=== PATIENT | female | born 1950 | race Caucasian/White ===

== ENCOUNTER 2022-03-26 06:44 | Inpatient (IN) | payer MEDICARE, SELFPAY ==
[2022-03-26] VITALS (14 sets, daily range): BP systolic 134–178; BP diastolic 63–96; PULSE 85–127; RESP 16–22; TEMP 36.5–37.9; O2SAT 89–97; BMI 38.5; BMI 36.8
--- NOTE | ~2022-03-26 | XR_ITS ---
EXAMINATION: XR CHEST CLINICAL INFORMATION: Shortness of breath, wheezing. COMPARISON: 11/03/2018 chest radiograph. TECHNIQUE: Frontal view of the chest was obtained. FINDINGS: No significant abnormality is noted involving the heart, lungs, mediastinum, bony thorax or soft tissues. XR/XR chest 1V IMPRESSION: No acute cardiopulmonary process.
--- NOTE | ~2022-03-26 | XR_ITS ---
EXAMINATION: XR CHEST CLINICAL INFORMATION: Cough COMPARISON: Previous chest x-ray most recent 03/26/2022 TECHNIQUE: 2 views of the chest were obtained. FINDINGS: The cardiac and mediastinal contours are stable. The lung volumes are low. There is question of lower lobe on the lateral view. This is not identified on the AP view. The lungs are otherwise clear. There is no pleural effusion or pneumothorax. There are degenerative changes of the spine. There is an old left humeral shaft fracture. Air-filled slightly distended loops of bowel. XR/XR chest 2V IMPRESSION: Question lower lobe atelectasis. No evidence of pneumonia. Air-filled slightly distended loops of bowel.
[2022-03-26] MEDS: Albuterol Sulfate 2.5 MG/0.5 ML VIAL.NEB 5 MG INHALE (06:58)
--- NOTE | 2022-03-26 07:01 | ED_ITS ---
HPI - SOB/Dyspnea General Chief Complaint: Dyspnea Stated Complaint: sob Time Seen by Provider: 03/26/22 06:53 Source: patient and family ( Kieran) Mode of arrival: EMS History of Present Illness HPI Narrative: 71-year-old female who presents emergency department for evaluation of shortness of breath. The patient states she has a history of asthma and has been feeling short of breath for approximately 2 days. She states she has been using her inhaler but she believes that it is making her feel worse. She states that at 02:30 hours she woke up and was very short of breath. She states that she used her inhaler without relief. The shortness of breath got worse therefore she called an ambulance. Paramedics noted that the patient was wheezing and she was treated with the DuoNeb nebulizer in route. On presentation to the emergency department the patient appeared tachypneic with a respiratory rate of 22 and was tachycardic with a heart rate of 110. Her lung exam revealed diffuse wheezing and rhonchi with no rales. She was treated with an albuterol nebulizer 5 mg. The patient denied fever, chills, rhinorrhea or sore throat. She states that she has a cough which is nonproductive. She complains of shortness of breath and dyspnea on exertion. She denied nausea, vomiting, diarrhea, myalgias arthralgias. She states she has received 3 COVID-19 vaccinations and did receive her flu shot this year. elicited complaint: shortness of breath Pertinent past history: asthma Onset (ago): day(s) (2) Timing: constant Severity: severe Exacerbating factors: nothing Relieving factors: nothing Known history of: asthma Associated symptoms: cough Treatment prior to arrival: bronchodilator Related Data Allergies Allergy/AdvReac Type Severity Reaction Status Date / Time diltiazem [From CARDIZEM] Allergy Unknown UNKNOWN Unverified 01/22/20 16:49 acetaminophen [From PERCOCET] AdvReac Severe HALLUCINATI Unverified 01/22/20 16:49 ONS oxycodone [From PERCOCET] AdvReac Severe HALLUCINATI Unverified 01/22/20 16:49 ONS aspirin [ASPIRIN] AdvReac Intermediate BLOODY Unverified 01/22/20 16:49 DIARRHEA Review of Systems Review of Systems: Yes all other systems are reviewed and are negative [facility] Past Medical History [facility] Narrative: Past medical history: Hypertension, asthma, TIA in 2019. Past surgical history: , thyroidectomy. Social history: She lives at home with her him and her daughter. She denies tobacco use, alcohol and drug use. Social History Social History Smoked in Last 30 Days: No Use of substances other than those prescribed or required for medical reasons: No Advance Directives: No Advance Directives Information Provided: No Physical Exam Vital Signs: Vital Signs: Last Vital Signs Temp 97.7 F 03/26/22 07:14 Pulse 120 H 03/26/22 10:52 Resp 22 H 03/26/22 10:52 BP 137/69 03/26/22 10:52 Pulse Ox 95 03/26/22 10:52 O2 Del Method 03/26/22 10:52 BMI result Body Mass Index 38.5 Const: Other: Awake, alert, female patient, appears dyspneic, answers questions appropriately HEENT: Head: Yes normal to inspection, Yes normocephalic and Yes atraumatic Ears: external ears normal General nose exam: Normal external nose present Face and sinus: Yes normal facial exam Mouth: Normal oral and palatal mucosa present Throat: Yes posterior oropharynx normal Eyes: General: appearance normal, both eyes and all related structures Pupils: Equal, round and reactive pupils present Neck: Neck: Yes normal visual inspection, Yes no lymphadenopathy, Yes trachea midline and Yes supple Chest: Chest palpation & inspection: normal inspection of the chest and normal palpation of entire chest wall Resp: Effort & Inspection: able to speak in complete sentences and tachypneic Auscultation: rhonchi (Diffuse) and wheezes (Diffuse) Cardio: Rate: regular rate Rhythm: regular rhythm Heart sounds: S1 normal heart sound present, S2 normal heart sound present and no murmurs GI: Inspection: Yes normal to inspection Palpation (GI): Soft to palpation, nontender and no guarding Auscultation: normal bowel sounds : General: Yes no CVA tenderness Back/Spine/Pelvis: Back: no CVA tenderness Skin: General skin exam: no rashes or lesions noted Neuro: Cranial nerves: Yes CN's II-XII intact bilaterally and Yes Equal, round and reactive pupils present Cognition (Neuro): normal cognition Motor exam (neuro): 5/5 motor strength present throughout Extrem: Other: No pitting edema General: Yes normal to inspection Psych: Appearance: grossly normal Speech and movement: Normal speech and movement present Affect: normal affect Attitude: cooperative Thought process: Normal thought process present Thought content: Normal thought content present Course Course Course Narrative: 71-year-old female who presents emergency department for evaluation shortness of breath x2 days which got worse this morning at 02:30 hours. Patient was noted to have significant wheezing by the paramedics and was given a DuoNeb EN route. When I evaluated the patient she was this neck and tachypneic, she had diffuse rhonchi diffuse wheezing. She was treated with an albuterol nebulizer 5 mg. Patient has had a cough for several days otherwise review of systems was unremarkable. Patient does have a history of asthma. I ordered a laboratory evaluation chest x-ray on the patient. Patient was also ordered to get Solu- Medrol 125 mg IV for asthma exacerbation. 1107: Laboratory evaluation revealed an elevated WBC 74464, elevated glucose 226, elevated high sensitive troponin I of 25.3. COVID and influenza were negative. Chest x-ray revealed no acute disease. Twelve EKG was consistent with sinus tachycardia. On re-evaluation the patient is still wheezing but it is significantly improved. She states she still feeling short of breath. Patient was ordered to get an albuterol nebulizer 2.5 mg. I also ordered a BMP and repeat troponin. 1222: Patient's repeat high sensitive troponin I was elevated 240, this is concerning for possible NSTEMI. Patient's proBNP was normal. I did discuss the patient's presentation with the covering tapering machine operator, Dr. Abraham. He recommended treating for acute coronary syndrome and advised starting heparin. The patient states she is allergic to aspirin therefore this was not given to her. Patient does take Plavix. I will repeat her EKG. I will discuss admission with the covering hospitalist. Medications Administered Discontinued Medications Generic Name Dose Route Start Last Admin Trade Name Freq PRN Reason Stop Dose Admin Albuterol Sulfate 5 mg 03/26/22 06:53 03/26/22 06:58 Albuterol Sulfate 2.5 Mg/0.5 Ml Vial.Neb INHALE 03/26/22 06:54 5 mg ONCE ONE Administration Methylprednisolone Sodium Succinate 125 mg 03/26/22 07:01 03/26/22 07:11 Methylprednisolone Sod Succ 125 Mg/2 Ml Vial IVPUSH 03/26/22 07:02 125 mg ONCE ONE Administration MDM - SOB/Dyspnea Medical Records Attestation: I reviewed the patient's medical records. Lab Data Attestation: I reviewed the patient's lab results. Result diagrams: 03/26/22 07:33 03/26/22 07:33 Labs: Lab Results 03/26/22 03/26/22 03/26/22 Range/Units 07:33 07:33 07:33 WBC 12.5 H (4.8-10.8) X10*3/uL RBC 4.90 (4.20-5.50) X10*6/uL Hgb 14.8 (12.0-16.0) g/dl Hct 44.3 (37.0-47.0) % MCV 90.4 (80.0-98.0) fL MCH 30.2 (27.0-33.0) pg MCHC 33.4 (31.0-35.0) g/dl RDW 12.1 (11.0-16.0) % Plt Count 273 (160-400) X10*3/uL MPV 10.3 (9.4-12.3) fL Immature Gran % (Auto) 0.5 H (0.0-0.4) % Neut % (Auto) 70.0 (45-73) % Lymph % (Auto) 21.0 (20-40) % Rooks % (Auto) 4.7 (2-11) % Eos % (Auto) 3.6 (0-4) % Baso % (Auto) 0.2 (0-2) % Lymph # (Auto) 2.6 (1.2-4.9) X10*3/uL Rooks # (Auto) 0.6 (0.1-1.2) X10*3/uL Eos # (Auto) 0.5 H (0.0-0.4) X10*3/uL Baso # (Auto) 0.0 (0.0-0.2) X10*3/uL Abs Immat Gran (auto) 0.06 H (0.00-0.03) X10*3/uL Absolute Neuts (auto) 8.8 H (2.0-8.3) x10*3/uL Absolute Nucleated RBC 0.000 (0.0-0.012) X10*3/uL Nucleated RBC % (auto) 0.0 (0.0-0.2) /100WBC PT 11.4 (10.0-13.1) SEC INR 1.0 (0.9-1.1) APTT 30.1 (26.0-36.4) SEC Sodium 138 (135-145) mmol/L Potassium 4.1 (3.3-5.1) mmol/L Chloride 102 (96-108) mmol/L Carbon Dioxide 24 (22-29) mmol/L Anion Gap 16 (12-20) BUN 15 (9-16) mg/dL Creatinine 1.01 (0.5-1.4) mg/dL Estim Creat Clear Calc 54.5 Estimated GFR 54 Random Glucose 226 H (60-115) mg/dL Calcium 8.9 (8.4-10.2) mg/dL Total Bilirubin 0.5 (0.0-1.0) mg/dL AST 14 (5-31) U/L ALT 13 (0-31) U/L Alkaline Phosphatase 61 (39-117) U/L Troponin I High Sens (<3.5-17.0) ng/L B-Natriuretic Peptide (<100) pg/mL Total Protein 7.2 (6.5-8.0) g/dL Albumin 4.4 (3.5-5.0) g/dL Lipase 13 (8-78) U/L COVID-19 (LINDA) (Negative) COVID-19 Clin Com Influenza Type A (LASHAE) (Negative) Influenza Type B (LASHAE) (Negative) Influenza A & B Note 03/26/22 03/26/22 03/26/22 Range/Units 07:33 07:33 07:33 WBC (4.8-10.8) X10*3/uL RBC (4.20-5.50) X10*6/uL Hgb (12.0-16.0) g/dl Hct (37.0-47.0) % MCV (80.0-98.0) fL MCH (27.0-33.0) pg MCHC (31.0-35.0) g/dl RDW (11.0-16.0) % Plt Count (160-400) X10*3/uL MPV (9.4-12.3) fL Immature Gran % (Auto) (0.0-0.4) % Neut % (Auto) (45-73) % Lymph % (Auto) (20-40) % Rooks % (Auto) (2-11) % Eos % (Auto) (0-4) % Baso % (Auto) (0-2) % Lymph # (Auto) (1.2-4.9) X10*3/uL Rooks # (Auto) (0.1-1.2) X10*3/uL Eos # (Auto) (0.0-0.4) X10*3/uL Baso # (Auto) (0.0-0.2) X10*3/uL Abs Immat Gran (auto) (0.00-0.03) X10*3/uL Absolute Neuts (auto) (2.0-8.3) x10*3/uL Absolute Nucleated RBC (0.0-0.012) X10*3/uL Nucleated RBC % (auto) (0.0-0.2) /100WBC PT (10.0-13.1) SEC INR (0.9-1.1) APTT (26.0-36.4) SEC Sodium (135-145) mmol/L Potassium (3.3-5.1) mmol/L Chloride (96-108) mmol/L Carbon Dioxide (22-29) mmol/L Anion Gap (12-20) BUN (9-16) mg/dL Creatinine (0.5-1.4) mg/dL Estim Creat Clear Calc Estimated GFR Random Glucose (60-115) mg/dL Calcium (8.4-10.2) mg/dL Total Bilirubin (0.0-1.0) mg/dL AST (5-31) U/L ALT (0-31) U/L Alkaline Phosphatase (39-117) U/L Troponin I High Sens 25.3 H (<3.5-17.0) ng/L B-Natriuretic Peptide (<100) pg/mL Total Protein (6.5-8.0) g/dL Albumin (3.5-5.0) g/dL Lipase (8-78) U/L COVID-19 (LINDA) Negative (Negative) COVID-19 Clin Com See Note Influenza Type A (LASHAE) Negative (Negative) Influenza Type B (LASHAE) Negative (Negative) Influenza A & B Note See Note 03/26/22 03/26/22 Range/Units 10:55 10:55 WBC (4.8-10.8) X10*3/uL RBC (4.20-5.50) X10*6/uL Hgb (12.0-16.0) g/dl Hct (37.0-47.0) % MCV (80.0-98.0) fL MCH (27.0-33.0) pg MCHC (31.0-35.0) g/dl RDW (11.0-16.0) % Plt Count (160-400) X10*3/uL MPV (9.4-12.3) fL Immature Gran % (Auto) (0.0-0.4) % Neut % (Auto) (45-73) % Lymph % (Auto) (20-40) % Rooks % (Auto) (2-11) % Eos % (Auto) (0-4) % Baso % (Auto) (0-2) % Lymph # (Auto) (1.2-4.9) X10*3/uL Rooks # (Auto) (0.1-1.2) X10*3/uL Eos # (Auto) (0.0-0.4) X10*3/uL Baso # (Auto) (0.0-0.2) X10*3/uL Abs Immat Gran (auto) (0.00-0.03) X10*3/uL Absolute Neuts (auto) (2.0-8.3) x10*3/uL Absolute Nucleated RBC (0.0-0.012) X10*3/uL Nucleated RBC % (auto) (0.0-0.2) /100WBC PT (10.0-13.1) SEC INR (0.9-1.1) APTT (26.0-36.4) SEC Sodium (135-145) mmol/L Potassium (3.3-5.1) mmol/L Chloride (96-108) mmol/L Carbon Dioxide (22-29) mmol/L Anion Gap (12-20) BUN (9-16) mg/dL Creatinine (0.5-1.4) mg/dL Estim Creat Clear Calc Estimated GFR Random Glucose (60-115) mg/dL Calcium (8.4-10.2) mg/dL Total Bilirubin (0.0-1.0) mg/dL AST (5-31) U/L ALT (0-31) U/L Alkaline Phosphatase (39-117) U/L Troponin I High Sens 240.0 H* D (<3.5-17.0) ng/L B-Natriuretic Peptide 31 (<100) pg/mL Total Protein (6.5-8.0) g/dL Albumin (3.5-5.0) g/dL Lipase (8-78) U/L COVID-19 (LINDA) (Negative) COVID-19 Clin Com Influenza Type A (LASHAE) (Negative) Influenza Type B (LASHAE) (Negative) Influenza A & B Note ECG Data Attestation: I personally reviewed and interpreted this ECG as follows: Interpretation: 0702: Sinus tachycardia rate of 112, normal intervals, no ST segment elevation or depression, no PACs, no PVCs, no Q-waves, there is no old EKG for comparison. Critical Care Time Critical Care Time Critical Care Time: Yes Total Critical Care Time: 35 Attestation: Critical Care: The patient was critically ill with a high probability of imminent or life threatening deterioration. I spent greater than 30 minutes of discontinuous time evaluating the patient,delivering critical care at the bedside, discussing and evaluating pertinent data with consultants. Critical care time does not include time spent performing separately billable procedures or teaching. Total time spent performing critical care was 35 minutes. Discharge Plan Discharge Patient Disposition: Admitted As Inpatient
--- NOTE | 2022-03-26 07:02 | ECG_ITS ---
Test Reason : SOB Blood Pressure : / mmHG Vent. Rate : 112 BPM Atrial Rate : 112 BPM P-R Int : 146 ms QRS Dur : 056 ms QT Int : 286 ms P-R-T Axes : 063 041 041 degrees QTc Int : 390 ms Sinus tachycardia Nonspecific ST and T wave abnormality Abnormal ECG When compared with ECG of 03-NOV-2018 03:49, Nonspecific T wave abnormality has replaced inverted T waves in Anterior leads Referred By: Horace Hamlin Electronically Signed By:BRICE SPRINGER MD
[2022-03-26] MEDS: methylPREDNISolone Sod Succ 125 MG/2 ML VIAL IVPUSH (07:11)
--- NOTE | 2022-03-26 07:19 | PC.NURSE ---
pt complains of worsening sob starting this morning accompanied by a cough. she has not been feeling well for the past 2 weeks. hx of asthma, uses inhaler at home, not oxygen dependant. O2 sat 96% at ra after albuterol treatment and solu medrol IV. she states she is feeling much better.
[2022-03-26 07:38] LABS: MANUAL DIFF FLAG NO
[2022-03-26 07:39] LABS: Basophils Percent Auto 0.2 % (0-2); Eosinophils Absolute Auto 0.5 X10*3/uL (0.0-0.4); Eosinophils Percent Auto 3.6 % (0-4); Hematocrit 44.3 % (37.0-47.0); Hemoglobin 14.8 g/dl (12.0-16.0); Imm Gran Abs Auto 0.06 X10*3/uL (0.00-0.03); Imm Gran Pct Auto 0.5 % (0.0-0.4); Lymphocytes Absolute Auto 2.6 X10*3/uL (1.2-4.9); Mean Corpuscular HGB Conc 33.4 g/dl (31.0-35.0); Mean Corpuscular Hemoglobin 30.2 pg (27.0-33.0); Mean Corpuscular Volume 90.4 fL (80.0-98.0); Mean Platelet Volume 10.3 fL (9.4-12.3); Monocytes Absolute Auto 0.6 X10*3/uL (0.1-1.2); Monocytes Percent Auto 4.7 % (2-11); Neutrophils Absolute Auto 8.8 x10*3/uL (2.0-8.3); Platelet Count 273 X10*3/uL (160-400); Red Cell Distribution Width 12.1 % (11.0-16.0); White Blood Count 12.5 X10*3/uL (4.8-10.8)
[2022-03-26 07:54] LABS: Alanine Aminotransferase 13 U/L (0-31); Albumin Level 4.4 g/dL (3.5-5.0); Alkaline Phosphatase 61 U/L (39-117); Anion Gap 16 (12-20); Aspartate Amino Transferase 14 U/L (5-31); Bilirubin Total 0.5 mg/dL (0.0-1.0); Blood Urea Nitrogen 15 mg/dL (9-16); Calcium 8.9 mg/dL (8.4-10.2); Carbon Dioxide 24 mmol/L (22-29); Chloride 102 mmol/L (96-108); Creatinine Clr Calc Pharmacy 54.5; Estimated Glomerular Filt Rate 54; Glucose Random 226 mg/dL (60-115); Lipase 13 U/L (8-78); Potassium 4.1 mmol/L (3.3-5.1); Sodium 138 mmol/L (135-145); Total Protein 7.2 g/dL (6.5-8.0)
[2022-03-26 07:56] LABS: Prothrombin Time 11.4 SEC (10.0-13.1)
[2022-03-26 07:58] LABS: Partial Thromboplastin Time 30.1 SEC (26.0-36.4)
[2022-03-26 08:01] LABS: Troponin-I High Sensitivity 25.3 ng/L (<3.5-17.0)
[2022-03-26 08:05] LABS: COVID-19 Test Negative (Negative); IDNOW Serial# 08D9AD1C; Influenza A Negative (Negative); Influenza B2 Negative (Negative)
--- NOTE | 2022-03-26 08:53 | PC.NURSE ---
pt alert and oriented x3. confused about time. resting comfortably. bp in the 160s. sinus tachy in the 120s. 02 sat 97% at ra.
--- NOTE | 2022-03-26 09:00 | PC.NURSE ---
pt ambulated to the bathroom. vs unchanged.
--- NOTE | 2022-03-26 10:53 | PC.NURSE ---
pt resting comfortably. alert and oriented x 3. tech drawing bnp and repeat troponin per providers orders. spouse at bedside.
[2022-03-26 11:22] LABS: B Type Natriuretic Peptide 31 pg/mL (<100)
--- NOTE | 2022-03-26 12:21 | ECG_ITS ---
Test Reason : HYPOXIA Blood Pressure : / mmHG Vent. Rate : 057 BPM Atrial Rate : 057 BPM P-R Int : 128 ms QRS Dur : 080 ms QT Int : 430 ms P-R-T Axes : 062 077 070 degrees QTc Int : 418 ms Sinus bradycardia with marked sinus arrhythmia Otherwise normal ECG When compared with ECG of 26-MAR-2022 07:02, Vent. rate has decreased BY 55 BPM QRS duration has increased Nonspecific T wave abnormality no longer evident in Lateral leads Referred By: Horace Hamlin Electronically Signed By:BRICE SPRINGER MD
[2022-03-26] MEDS: Albuterol Sulfate (0.083%) 2.5 MG/3 ML VIAL.NEB INHALE (12:28)
[2022-03-26] MEDS: Heparin Sodium,Porcine 5,000 UNIT/ML VIAL 4000 UNIT IVPUSH (13:15)
[2022-03-26] MEDS: Heparin Sodium,Porcine/1/2NS 25,000 UNIT/250 ML IV.SOLN 10 UNIT IVCONT (13:16)
--- NOTE | 2022-03-26 13:24 | PC.NURSE ---
pt alert and oriented. seems a little confused when asked questions, at the bedside, he confirmed this is her baseline. she denies chest pain. BP is elevated and hr is in the 120s. gave her 4000U heparin bolus and started heparin drip
--- NOTE | 2022-03-26 14:38 | P.HPHOSP_ITS ---
History of Present Illness Date of Service: 03/26/22 Attending physician on admission: Ijeoma Dudley Chief Complaint: shortness of br 71-year-old female patient with past medical history significant for hypertension, asthma, TIA in 2019 presented to [facility] due to shortness of breath of 2 days duration associated with dry cough for few days duration patient took her home inhalers with no significant improvement last night patient woke up with worsening shortness of breath therefore called ambulance, paramedics noted bilateral wheeze she required treatment with DuoNeb nebulizer EN route in the ED patient was noted to be tachypneic tachycardic lung exam revealed diffuse wheezing and rhonchi patient treated with albuterol nebulizer, IV steroids , influenza and COVID test was negative chest x-ray showed no acute infiltrate, BNP was 31, initial troponin was 25 that jump to 240, EKG showed no acute ischemic changes patient denies chest pain, no palpitation patient denies associated nausea vomiting abdominal pain no diaphoresis, no lightheadedness, no dizziness, denies fever chills patient is now being admitted to [facility] with asthma exacerbation likely causing secondary KS on arrival patient oxygenation was 89% on room air. Review of Systems Review of Systems: General no headache no dizziness no fever chills. CVS no chest pain, no palpitation. Respiratory dry cough and shortness of breath of few days duration Gastrointestinal no nausea no vomiting, no abdominal pain no urinary urgency, no frequency Skin no rash musculoskeletal no pain Yes all other systems are reviewed and are negative [facility] Medical History (Updated 03/27/22 @ 10:25 by Justino Brar MD) Asthma Hypertension TIA (transient ischemic attack) Family History (Updated 03/27/22 @ 10:25 by Justino Brar MD) Maternal Uncle Myocardial infarction Pertinent family history: history of premature coronary artery disease in maternal uncle at age 45 had massive heart attack, mother and father with no acute medical issues Social History Household Members: Spouse and Children Housing: House Do you presently have visiting nurse or other home services: No Patient Tobacco Use Status: Never used Tobacco Smoked in Last 30 Days: No Use of substances other than those prescribed or required for medical reasons: No Currently Displaying Signs/Symptoms of Drug Intoxication Withdrawal: No Have you been hit, kicked, punched, or otherwise hurt by someone within the past year? If so, by whom?: No Do you feel safe in your current relationship?: Yes Is there a partner from a previous relationship who is making you feel unsafe now?: No Are you made to feel afraid or neglected: No Advance Directives: No Advance Directives Information Provided: No Do you have thoughts of harming others: None Do you have a plan to hurt others: No Plan Recently lost weight without trying: No Nutrition Risks: No Nutritional Risk Patient : No service: No Meds Allergies Allergy/AdvReac Type Severity Reaction Status Date / Time diltiazem [From CARDIZEM] Allergy Unknown UNKNOWN Unverified 01/22/20 16:49 acetaminophen [From PERCOCET] AdvReac Severe HALLUCINATI Unverified 01/22/20 16:49 ONS oxycodone [From PERCOCET] AdvReac Severe HALLUCINATI Unverified 01/22/20 16:49 ONS aspirin [ASPIRIN] AdvReac Intermediate BLOODY Unverified 01/22/20 16:49 DIARRHEA Active Medications: Current Medications Acetaminophen (Acetaminophen 325 Mg Tablet) 650 mg PO Q6H PRN PRN Reason: Pain, Mild (Pain Scale 1-3) Heparin Sodium (Porcine) (Heparin Sodium,Porcine 5,000 Unit/Ml Vial) 3,500 unit 40 unit/kg (3500 unit) IVPUSH PROTOCOL BOLUS PRN; Protocol PRN Reason: 40 unit/kg - Heparin Protocol Heparin Sodium (Porcine) (Heparin Sodium,Porcine 5,000 Unit/Ml Vial) 7,100 unit 80 unit/kg (7100 unit) IVPUSH PROTOCOL BOLUS PRN; Protocol PRN Reason: 80 unit/kg - Heparin Protocol Heparin Sodium/Sodium Chloride (Heparin Sodium,Porcine/1/2ns) 25,000 unit in 250 mls @ 0 mls/hr IVCONT .Q0M ZAID; Protocol Last Admin: 03/26/22 13:16 Dose: 11.33 units/kg/hr, 10 mls/hr Levalbuterol HCl (Levalbuterol Hcl 1.25 Mg/0.5 Ml Vial.Neb) 1.25 mg INHALE RQ4H WHILE AWAKE ZAID Melatonin (Melatonin 3 Mg Tablet) 3 mg PO BEDTIME PRN PRN Reason: Insomnia Methylprednisolone Sodium Succinate (Methylprednisolone Sod Succ 125 Mg/2 Ml Vial) 40 mg IVPUSH Q8H [facility] Ondansetron HCl (Ondansetron Hcl 4 Mg/2 Ml Vial) 4 mg IVPUSH Q8H PRN PRN Reason: Nausea and Vomiting Pharmacy Consult (Consult Rx Perform Med Rec) 1 each MISCELLANE ONCE PRN PRN Reason: Consult order Sodium Chloride (0.9 % Sodium Chloride Flush 3 Ml Syringe) 3 ml IVFLUSH QSHIFT [facility] Home Medications Medication Instructions Recorded Confirmed Last Taken Type Saccharomyces boulardii 250 mg 1 cap PO BID 03/26/22 03/26/22 03/25/22 History capsule (Probiotic (S.boulardii)) albuterol sulfate 90 mcg/actuation 2 puff inhalation Q4H PRN wheezing 03/26/22 03/26/22 Unknown History aerosol inhaler alendronate 70 mg tablet 1 tab PO LOPEZ@0900 03/26/22 03/26/22 03/26/22 History aripiprazole 15 mg tablet 1 tab PO DAILY 03/26/22 03/26/22 03/25/22 History benztropine 1 mg tablet 0.5 tab PO BEDTIME 03/26/22 03/26/22 03/25/22 History cholecalciferol (vitamin D3) 25 1 cap PO DAILY 03/26/22 03/26/22 03/25/22 History mcg (1,000 unit) capsule (Vitamin D3) clopidogrel 75 mg tablet 1 tab PO DAILY 03/26/22 03/26/22 03/25/22 History escitalopram oxalate 20 mg tablet 1 tab PO DAILY 03/26/22 03/26/22 03/25/22 History furosemide 20 mg tablet 1 tab PO DAILY 03/26/22 03/26/22 03/25/22 History ibuprofen 125 mg-acetaminophen 250 2 tab PO BID pain 03/26/22 03/26/22 03/25/22 History mg tablet (Advil Dual Action) latanoprost 0.005 % eye drops 1 drp ophthalmic (eye) BEDTIME 03/26/22 03/26/22 03/25/22 History rosuvastatin 5 mg tablet 1 tab PO DAILY 03/26/22 03/26/22 03/25/22 History spironolactone 50 mg tablet 1 tab PO DAILY 03/26/22 03/26/22 03/25/22 History trazodone 50 mg tablet 1 tab PO BEDTIME PRN insomnia 03/26/22 03/26/22 03/25/22 History Physical Exam Vital Signs and Narrative: Vital Signs: Last Vital Signs Temp 97.7 F 03/26/22 07:14 Pulse 124 H 03/26/22 13:13 Resp 20 03/26/22 13:13 BP 160/73 H 03/26/22 13:13 Pulse Ox 95 03/26/22 13:13 O2 Del Method 03/26/22 13:13 BMI result Body Mass Index 36.8 Const: Other: General patient awake alert, in no acute distress. anicteric sclera Neck supple no JVD. CVS regular rate rhythm, no murmurs Respiratory lungs diminished breath sound, bilateral expiratory wheeze, no crackles, no use of accessory muscles Gastrointestinal abdomen soft, non tender, bowel sounds audible, no no guarding , no rigidity. Extremities no clubbing cyanosis or edema. Neuro nonfocal Skin no rash psych appropriate affect Results Labs CBC and Chem 7: 03/27/22 08:30 03/26/22 07:33 Labs: Laboratory Results - last 24 hr 03/26/22 03/26/22 03/26/22 07:33 07:33 07:33 MCV 90.4 MCH 30.2 MCHC 33.4 RDW 12.1 Plt Count 273 MPV 10.3 Immature Gran % (Auto) 0.5 H Neut % (Auto) 70.0 Lymph % (Auto) 21.0 [place] % (Auto) 4.7 Eos % (Auto) 3.6 Baso % (Auto) 0.2 Lymph # (Auto) 2.6 [place] # (Auto) 0.6 Eos # (Auto) 0.5 H Baso # (Auto) 0.0 Abs Immat Gran (auto) 0.06 H Absolute Neuts (auto) 8.8 H Absolute Nucleated RBC 0.000 Nucleated RBC % (auto) 0.0 PT 11.4 INR 1.0 APTT 30.1 Anion Gap 16 Estim Creat Clear Calc 54.5 Estimated GFR 54 Random Glucose 226 H Calcium 8.9 Total Bilirubin 0.5 AST 14 ALT 13 Alkaline Phosphatase 61 Troponin I High Sens B-Natriuretic Peptide Total Protein 7.2 Albumin 4.4 Lipase 13 COVID-19 (LINDA) COVID-19 Clin Com Influenza Type A (LASHAE) Influenza Type B (LASHAE) Influenza A & B Note 03/26/22 03/26/22 03/26/22 07:33 07:33 07:33 MCV MCH MCHC RDW Plt Count MPV Immature Gran % (Auto) Neut % (Auto) Lymph % (Auto) [place] % (Auto) Eos % (Auto) Baso % (Auto) Lymph # (Auto) [place] # (Auto) Eos # (Auto) Baso # (Auto) Abs Immat Gran (auto) Absolute Neuts (auto) Absolute Nucleated RBC Nucleated RBC % (auto) PT INR APTT Anion Gap Estim Creat Clear Calc Estimated GFR Random Glucose Calcium Total Bilirubin AST ALT Alkaline Phosphatase Troponin I High Sens 25.3 H B-Natriuretic Peptide Total Protein Albumin Lipase COVID-19 (LINDA) Negative COVID-19 Clin Com See Note Influenza Type A (LASHAE) Negative Influenza Type B (LASHAE) Negative Influenza A & B Note See Note 03/26/22 03/26/22 10:55 10:55 MCV MCH MCHC RDW Plt Count MPV Immature Gran % (Auto) Neut % (Auto) Lymph % (Auto) [place] % (Auto) Eos % (Auto) Baso % (Auto) Lymph # (Auto) [place] # (Auto) Eos # (Auto) Baso # (Auto) Abs Immat Gran (auto) Absolute Neuts (auto) Absolute Nucleated RBC Nucleated RBC % (auto) PT INR APTT Anion Gap Estim Creat Clear Calc Estimated GFR Random Glucose Calcium Total Bilirubin AST ALT Alkaline Phosphatase Troponin I High Sens 240.0 H* D B-Natriuretic Peptide 31 Total Protein Albumin Lipase COVID-19 (LINDA) COVID-19 Clin Com Influenza Type A (LASHAE) Influenza Type B (LASHAE) Influenza A & B Note Imaging Radiologist's Impressions: Impressions Chest X-Ray 03/26/22 07:27 IMPRESSION: No acute cardiopulmonary process. Assessment and Plan (1) Asthma with exacerbation: Status: Acute (2) Acute non-ST elevation myocardial infarction (NSTEMI): Status: Acute Plan 71-year-old female patient with past medical history significant for asthma, hypertension, history of bloody diarrhea with aspirin, unknown allergy to Cardizem presented to [facility] with 2-3 days history of dry cough associated with shortness of breath not responding to home inhalers, in the ER patient workup showed a normal chest x-ray, elevated troponin normal BNP, normal electrolyte and CBC, EKG showed no acute ischemia on examination patient noted to have bilateral expiratory wheeze suggestive of acute asthma exacerbation likely contributing to non ST-elevation KS. non ST-elevation KS will admit to telemetry unit, placed on IV heparin, statins, Plavix since allergy to aspirin and place on verapamil for tachycardia will check lipid profile, echocardiogram, cardiology consult acute asthma exacerbation with underlying history of mild intermittent asthma will treat with IV Solu Medrol, Xopenex q.4 hours while awake, cough medication, azithromycin to decrease inflammation, continue close clinical follow hypertension med reconciliation pending mood disorder will resume home medication Lexapro, benztropine, and Abilify Code status full code in my clinical judgment patient need 2 night inpatient stay due to non ST- elevation KS and acute asthma exacerbation, on IV heparin and iv steroids Quality Stroke Does the patient have a stroke diagnosis?: No VTE Prior VTE?: No VTE Risk Level:: Medical - moderate - high VTE Device Contraindication: Treatment Not Indicated VTE Drug Contraindication: N/A - Med Ordered
--- NOTE | 2022-03-26 14:59 | PHA.MEDREC ---
Pharmacy Consult ? Medication Reconciliation Pharmacy has completed the medication reconciliation. Family members and patient confirmed meds.
[2022-03-26] MEDS: guaiFENesin DM 100/10/5 ML 5 ML SYRUP 10 ML PO ×2 (16:35→21:54)
[2022-03-26] MEDS: Clopidogrel Bisulfate 75 MG TABLET PO (16:35)
[2022-03-26] MEDS: methylPREDNISolone Sod Succ 125 MG/2 ML VIAL 40 MG IVPUSH ×2 (16:35→22:53)
[2022-03-26] MEDS: VerapamiL HCL 40 MG TABLET PO ×2 (16:35→21:55)
[2022-03-26] MEDS: Atorvastatin Calcium 80 MG TABLET PO (16:38)
[2022-03-26] MEDS: Azithromycin 500 MG in 0.9 % Sodium Chloride 250 ML 125 MG IV (17:28)
[2022-03-26] MEDS: 0.9 % Sodium Chloride Flush 3 ML SYRINGE IVFLUSH ×2 (17:29→23:01)
--- NOTE | 2022-03-26 18:50 | PC.NURSE ---
PATIENT AND UPDATED BEDSIDE ON HEALTH STATUS AND POTENTIAL TRANSFER TO [facility]. PATIENT BLOOD PRESSURE ELEVATED BASELINE AND MD NOTIFIED. HEPARIN DRIP RUNNING THROUGH RT WRIST IV, NO COMPLAINTS. IV ANTIBIOTICS RUNNING THROUGH LEFT WRIST IV, NO COMPLAINTS.
[2022-03-26 19:47] LABS: PTT Heparin Drip 76.6 SEC (53-77.9)
[2022-03-26] MEDS: Benztropine Mesylate 0.5 MG TABLET PO (21:55)
[2022-03-26] MEDS: traZODone HCL 50 MG TABLET PO (21:55)
[2022-03-26] MEDS: Latanoprost 0.005 % Ophth Sol 2.5 ML DROPS 1 DROP EYE-BOTH (22:53)
[2022-03-26] MEDS: Acetaminophen 325 MG TABLET 650 MG PO (23:50)
[2022-03-27] VITALS (8 sets, daily range): BP systolic 129–166; BP diastolic 64–81; PULSE 100–108; RESP 16–20; TEMP 36.6–37.2; O2SAT 92–98
[2022-03-27 02:40] LABS: PTT Heparin Drip 62.1 SEC (53-77.9)
[2022-03-27] MEDS: methylPREDNISolone Sod Succ 125 MG/2 ML VIAL 40 MG IVPUSH ×3 (06:00→22:19)
--- NOTE | 2022-03-27 07:00 | CA_ITS ---
Transthoracic Echocardiogram Patient (Last, First, Middle): Debra Black, Gender: Female Date of : 1950 Age: 71 Procedure Date: 03/27/2022 Procedure Type: Transthoracic Echocardiogram Location: [facility] [place] Height: 154.94 cm Weight: 88. kg BSA: 1.86 m2 Heart Rate: 114 bpm BP: 129 / 81 mmHg Engraving Plate Maker: SB Referring MD: Ijeoma Dudley MD Symptoms: nstemi Study Quality: Adequate w contrast ECG Rhythm: Sinus tachycardia Conclusions: - The left ventricular systolic function is hyperdynamic. The visually estimated ejection fraction is >70%. - There is mild calcification of the aortic valve. - There is mild mitral annular calcification. Findings Procedure Information Contrast agent, definity, is being given per protocol without apparent complications. Left Ventricle Normal left ventricular cavity size. There is normal left ventricular wall thickness. The left ventricular systolic function is hyperdynamic. The visually estimated ejection fraction is >70%. There is no evidence of regional wall motion abnormalities. Diastolic function is normal for age. Right Ventricle Normal right ventricular cavity size and systolic function. Atria Both atria are normal in size. Aortic Valve There is mild calcification of the aortic valve. There is no aortic valve stenosis. There is no aortic valve regurgitation. Mitral Valve There is mild mitral annular calcification. There is no mitral valve regurgitation. There is no mitral valve stenosis. Pulmonic Valve The pulmonic valve is likely normal. Tricuspid Valve There is trace tricuspid valve regurgitation. Tricuspid regurgitation envelope is inadequate for calculation of right ventricular systolic pressure. Great Vessels The asc aorta is normal in size. Small plaque is seen in the sino tubular ridge. Venous The inferior vena cava is normal in size and collapses greater than 50% with inspiration. Pericardium/Pleural There is no evidence of pericardial effusion. Prior Study Comparison No prior study available for comparison. Measurements 2D Linear Measurements IVSd: 0.82 0.6-0.9/0.6-1.0 cm LVIDd: 4.48 3.9-5.3/4.2-5.9 cm LVIDd Index: 2.41 2.4-3.2/2.2-3.1 cm/m2 LVIDs: 3.08 2.0-3.6 cm LVPWd: 0.79 0.7-1.1 cm LA Diam: 3.60 2.7-3.8/3.0-4.0 cm LAIDs Index: 1.94 1.5-2.3 cm/m2 LV Mass: 141.27 67-162/88-224 g LV Mass Index: 75.95 43-95/49-115 g/m2 LVOT Diam: 2.00 3.0+(-)1.3 cm 2D Systolic Function EF 4C: 73.40 >55% EF 2C: 78.20 >55% EF BiP: 75.50 >55% Mitral Valve MV Pk E: 1.07 MV PK A: 1.45 MV Decel Time: 117.00 E/A: 0.70 E'Lateral: 6.64 E'Medial: 7.72 E/E' Med: 13.90 E/E' Lat: 16.10 PHT: 34.00 MVA PHT: 6.47 Decel [place]: 9.09 Aortic Valve AoV Pk Dheeraj: 1.66 AoV Pk Grad: 11.00 LVOT LVOT Pk Dheeraj: 1.32 LVOT Mn Dheeraj: 0.91 LVOT VTI: 0.24 LVOT Pk Grad: 7.00 LVOT Mn Grad: 4.00 LVOT Diam: 2.00 LVOT Area: 3.14 Diastolic Function MV Pk E: 1.07 MV Pk A: 1.45 E/A: 0.70 E'Medial: 7.72 E/E' Med: 13.90 E' Laterial: 6.64 E/E' Lat: 16.10 Right Ventricle TAPSE (mm): 17.50 TVS' Dheeraj: 15.60 Tricuspid Valve RA Press: 3.00 Great Vessels Aorta Sinus of Valsalva: 2.80 2.0-3.5 cm Ao Asc: 3.40 2.1-3.4 cm Pulmonary Valve PV Pk Dheeraj: 1.46 Peak PV Grad: 9.00 Updated in Other Vendor System with Status of Final Justino Brar MD electronically signed on 03/27/2022 12:05:09 PM with status of Final
[2022-03-27] MEDS: guaiFENesin DM 100/10/5 ML 5 ML SYRUP 10 ML PO ×3 (08:34→22:19)
[2022-03-27] MEDS: Furosemide 20 MG TABLET PO (08:34)
[2022-03-27] MEDS: Atorvastatin Calcium 80 MG TABLET PO (08:34)
[2022-03-27] MEDS: ARIPiprazole 15 MG TABLET PO (08:34)
[2022-03-27] MEDS: Spironolactone 25 MG TABLET 50 MG PO (08:34)
[2022-03-27] MEDS: Clopidogrel Bisulfate 75 MG TABLET PO (08:35)
[2022-03-27] MEDS: Escitalopram Oxalate 20 MG TABLET PO (08:35)
[2022-03-27] MEDS: VerapamiL HCL 40 MG TABLET PO ×3 (08:35→22:19)
[2022-03-27 08:40] LABS: Hematocrit 46.3 % (37.0-47.0); Hemoglobin 15.6 g/dl (12.0-16.0); Mean Corpuscular HGB Conc 33.7 g/dl (31.0-35.0); Mean Corpuscular Hemoglobin 30.4 pg (27.0-33.0); Mean Corpuscular Volume 90.3 fL (80.0-98.0); Platelet Count 332 X10*3/uL (160-400); Red Blood Count 5.13 X10*6/uL (4.20-5.50); Red Cell Distribution Width 12.6 % (11.0-16.0); White Blood Count 21.6 X10*3/uL (4.8-10.8)
[2022-03-27 08:49] LABS: Prothrombin Time 11.2 SEC (10.0-13.1)
[2022-03-27 08:52] LABS: PTT Heparin Drip 51.2 SEC (53-77.9)
[2022-03-27 09:16] LABS: Cholesterol 174 mg/dL; HDL Cholesterol 62 mg/dL; LDL Cholesterol Calculated 93 mg/dl; Triglycerides 96 mg/dL
[2022-03-27 09:32] LABS: Troponin-I High Sensitivity 743.3 ng/L (<3.5-17.0)
--- NOTE | 2022-03-27 10:12 | MHC.CM.PN ---
pt from home where she livers with her and sarah pt will not need servceis when dcd has own ride home is covid vax x 3 home no servcies
--- NOTE | 2022-03-27 10:23 | PM.CNCAR ---
History of Present Illness History of Present Illness Date of Service: 03/27/22 Chief complaint: sob Narrative: This is a cardiology consultation regarding elevated troponins. Patient has a history of asthma. No known coronary artery disease or myocardial infarction any other cardiac issues. Otherwise, listed to have hypertension, asthma, TIA. Current admissions because of shortness of breath and coughing. She is being treated for asthma exacerbation. In this context, elevated troponins and hence we have been asked to see her. Apart from the respiratory symptoms she denies any clear anginal-type symptoms at this time. She also has not had any cardiac symptoms like angina in the past Review of Systems Review of Systems: Yes all other systems are reviewed and are negative Constitutional: Constitutional: Reports as per HPI Eyes: Eyes: Reports as per HPI ENT: Reports as per HPI Cardiovascular: Cardiovascular: Reports as per HPI, Denies acrocyanosis, Denies cool extremities, Denies chest pain, Denies leg edema, Denies lightheadedness, Denies palpitations and Reports dyspnea Respiratory: Respiratory: Reports as per HPI, Reports cough and Reports dyspnea Gastrointestinal: Gastrointestinal: Reports as per HPI and Reports no additional gastrointestinal complaints Genitourinary: Genitourinary: Reports as per HPI Musculoskeletal: Musculoskeletal: Reports no additional musculoskeletal complaints and Reports as per HPI Integumentary/Breasts: Skin/Breast: Reports system reviewed and no additional complaints, except as docu Neurologic: Reports system reviewed and no additional complaints, except as documented and Reports as per HPI Psychiatric: Psychiatric: Reports no additional psychiatric complaints and Reports as per HPI Endocrine: Endocrine: Reports no additional endocrine complaints, Reports as per HPI and Denies palpitations Hematologic/Lymphatic: Hematologic/Lymphatic: Reports no additional hematologic/lymphatic complaints and Reports as per HPI Allergic/Immunologic: Allergic/Immunologic: Reports no additional allergic/immunologic complaints and Reports as per HPI PMF Past Medical History Medical History (Updated 03/27/22 @ 10:25 by Justino Brar MD) Asthma Hypertension TIA (transient ischemic attack) Family History Family History (Updated 03/27/22 @ 10:25 by Justino Brar MD) Maternal Uncle Myocardial infarction Social History Social History Household Members: Spouse and Children Housing: House Do you presently have visiting nurse or other home services: No Patient Tobacco Use Status: Never used Tobacco Smoked in Last 30 Days: No Use of substances other than those prescribed or required for medical reasons: No Currently Displaying Signs/Symptoms of Drug Intoxication Withdrawal: No Have you been hit, kicked, punched, or otherwise hurt by someone within the past year? If so, by whom?: No Do you feel safe in your current relationship?: Yes Is there a partner from a previous relationship who is making you feel unsafe now?: No Are you made to feel afraid or neglected: No Advance Directives: No Advance Directives Information Provided: No Do you have thoughts of harming others: None Do you have a plan to hurt others: No Plan Recently lost weight without trying: No Nutrition Risks: No Nutritional Risk Patient : No service: No Meds Allergies Allergy/AdvReac Type Severity Reaction Status Date / Time diltiazem [From CARDIZEM] Allergy Unknown UNKNOWN Unverified 01/22/20 16:49 acetaminophen [From PERCOCET] AdvReac Severe HALLUCINATI Unverified 01/22/20 16:49 ONS oxycodone [From PERCOCET] AdvReac Severe HALLUCINATI Unverified 01/22/20 16:49 ONS aspirin [ASPIRIN] AdvReac Intermediate BLOODY Unverified 01/22/20 16:49 DIARRHEA Active Medications: Current Medications Acetaminophen (Acetaminophen 325 Mg Tablet) 650 mg PO Q6H PRN PRN Reason: Pain, Mild (Pain Scale 1-3) Last Admin: 03/26/22 23:50 Dose: 650 mg Albuterol Sulfate (Albuterol Sulfate 90 Mcg 8 Gm Inhaler) 2 puff INHALE Q4H PRN PRN Reason: wheezing Aripiprazole (Aripiprazole 15 Mg Tablet) 15 mg PO DAILY [facility] Last Admin: 03/27/22 08:34 Dose: 15 mg Atorvastatin Calcium (Atorvastatin Calcium 80 Mg Tablet) 80 mg PO DAILY [facility] Last Admin: 03/27/22 08:34 Dose: 80 mg Benztropine Mesylate (Benztropine Mesylate 0.5 Mg Tablet) 0.5 mg PO BEDTIME [facility] Last Admin: 03/26/22 21:55 Dose: 0.5 mg Clopidogrel Bisulfate (Clopidogrel Bisulfate 75 Mg Tablet) 75 mg PO DAILY [facility] Last Admin: 03/27/22 08:35 Dose: 75 mg Escitalopram Oxalate (Escitalopram Oxalate 20 Mg Tablet) 20 mg PO DAILY [facility] Last Admin: 03/27/22 08:35 Dose: 20 mg Furosemide (Furosemide 20 Mg Tablet) 20 mg PO DAILY [facility]; Protocol Last Admin: 03/27/22 08:34 Dose: 20 mg Guaifenesin/Dextromethorphan (Guaifenesin Dm 100/10/5 Ml 5 Ml Syrup) 10 ml PO TID [facility] Last Admin: 03/27/22 08:34 Dose: 10 ml Heparin Sodium (Porcine) (Heparin Sodium,Porcine 5,000 Unit/Ml Vial) 3,500 unit 40 unit/kg (3500 unit) IVPUSH PROTOCOL BOLUS PRN; Protocol PRN Reason: 40 unit/kg - Heparin Protocol Heparin Sodium (Porcine) (Heparin Sodium,Porcine 5,000 Unit/Ml Vial) 7,100 unit 80 unit/kg (7100 unit) IVPUSH PROTOCOL BOLUS PRN; Protocol PRN Reason: 80 unit/kg - Heparin Protocol Heparin Sodium/Sodium Chloride (Heparin Sodium,Porcine/1/2ns) 25,000 unit in 250 mls @ 0 mls/hr IVCONT .Q0M [facility]; Protocol Last Titration: 03/27/22 02:46 Dose: 11.33 units/kg/hr, 10 mls/hr Azithromycin 500 mg/ Sodium (Chloride) 250 mls @ 125 mls/hr IV Q24H [facility] Last Infusion: 03/26/22 19:32 Dose: Infused Latanoprost (Latanoprost 0.005 % Ophth Deborah 2.5 Ml Drops) 1 drop EYE-BOTH BEDTIME [facility] Last Admin: 03/26/22 22:53 Dose: 1 drop Levalbuterol HCl (Levalbuterol Hcl 1.25 Mg/0.5 Ml Vial.Neb) 1.25 mg INHALE RQ4H WHILE AWAKE [facility] Last Admin: 03/27/22 07:27 Dose: 1.25 mg Melatonin (Melatonin 3 Mg Tablet) 3 mg PO BEDTIME PRN PRN Reason: Insomnia Methylprednisolone Sodium Succinate (Methylprednisolone Sod Succ 125 Mg/2 Ml Vial) 40 mg IVPUSH Q8H [facility] Last Admin: 03/27/22 06:00 Dose: 40 mg Ondansetron HCl (Ondansetron Hcl 4 Mg/2 Ml Vial) 4 mg IVPUSH Q8H PRN PRN Reason: Nausea and Vomiting Pharmacy Consult (Consult Rx Perform Med Rec) 1 each MISCELLANE ONCE PRN PRN Reason: Consult order Sodium Chloride (0.9 % Sodium Chloride Flush 3 Ml Syringe) 3 ml IVFLUSH QSHIFT [facility] Last Admin: 03/27/22 08:39 Dose: Not Given Spironolactone (Spironolactone 25 Mg Tablet) 50 mg PO DAILY [facility]; Protocol Last Admin: 03/27/22 08:34 Dose: 50 mg Trazodone HCl (Trazodone Hcl 50 Mg Tablet) 50 mg PO BEDTIME PRN PRN Reason: insomnia Last Admin: 03/26/22 21:55 Dose: 50 mg Verapamil HCl (Verapamil Hcl 40 Mg Tablet) 40 mg PO TID [facility]; Protocol Last Admin: 03/27/22 08:35 Dose: 40 mg Home Medications Medication Instructions Recorded Confirmed Last Taken Type Saccharomyces boulardii 250 mg 1 cap PO BID 03/26/22 03/26/22 03/25/22 History capsule (Probiotic (S.boulardii)) albuterol sulfate 90 mcg/actuation 2 puff inhalation Q4H PRN wheezing 03/26/22 03/26/22 Unknown History aerosol inhaler alendronate 70 mg tablet 1 tab PO LOPEZ@0900 03/26/22 03/26/22 03/26/22 History aripiprazole 15 mg tablet 1 tab PO DAILY 03/26/22 03/26/22 03/25/22 History benztropine 1 mg tablet 0.5 tab PO BEDTIME 03/26/22 03/26/22 03/25/22 History cholecalciferol (vitamin D3) 25 1 cap PO DAILY 03/26/22 03/26/22 03/25/22 History mcg (1,000 unit) capsule (Vitamin D3) clopidogrel 75 mg tablet 1 tab PO DAILY 03/26/22 03/26/22 03/25/22 History escitalopram oxalate 20 mg tablet 1 tab PO DAILY 03/26/22 03/26/22 03/25/22 History furosemide 20 mg tablet 1 tab PO DAILY 03/26/22 03/26/22 03/25/22 History ibuprofen 125 mg-acetaminophen 250 2 tab PO BID pain 03/26/22 03/26/22 03/25/22 History mg tablet (Advil Dual Action) latanoprost 0.005 % eye drops 1 drp ophthalmic (eye) BEDTIME 03/26/22 03/26/22 03/25/22 History rosuvastatin 5 mg tablet 1 tab PO DAILY 03/26/22 03/26/22 03/25/22 History spironolactone 50 mg tablet 1 tab PO DAILY 03/26/22 03/26/22 03/25/22 History trazodone 50 mg tablet 1 tab PO BEDTIME PRN insomnia 03/26/22 03/26/22 03/25/22 History Physical Exam Vital Signs: Vital Signs: Last Vital Signs Temp 98.6 F 03/27/22 07:29 Pulse 102 H 03/27/22 07:29 Resp 19 03/27/22 07:29 BP 139/72 03/27/22 07:29 Pulse Ox 97 03/27/22 07:29 O2 Del Method 03/27/22 07:29 BMI result Body Mass Index 36.8 Const: General: comfortable and no acute distress Orientation/consciousness: patient oriented x3 HEENT: Other: Unremarkable Head: Yes normal to inspection Neck: Neck: Yes normal visual inspection Chest: Chest palpation & inspection: normal inspection of the chest Resp: Auscultation: wheezes Cardio: Palpation: normal PMI Heart sounds: S1 normal heart sound present, S2 normal heart sound present, no gallops, no murmurs and no rubs GI: Palpation (GI): Soft to palpation Back/Spine/Pelvis: Other: unremarkable Skin: General skin exam: no rashes or lesions noted Neuro: General: patient oriented x3 Extrem: General: Yes normal to inspection Psych: Mental Status: mental status grossly normal Objective Labs and Meds Result diagrams: 03/27/22 08:30 03/26/22 07:33 Lab results: Laboratory Results - last 24 hr 03/26/22 03/26/22 03/26/22 10:55 10:55 19:28 WBC RBC Hgb Hct MCV MCH MCHC RDW Plt Count MPV Absolute Nucleated RBC Nucleated RBC % (auto) PT INR aPTT Heparin Protocol 76.6 Troponin I High Sens 240.0 H* D B-Natriuretic Peptide 31 Triglycerides Cholesterol LDL Cholesterol, Calc HDL Cholesterol 03/27/22 03/27/22 03/27/22 02:04 08:30 08:30 WBC 21.6 H RBC 5.13 Hgb 15.6 Hct 46.3 MCV 90.3 MCH 30.4 MCHC 33.7 RDW 12.6 Plt Count 332 MPV 10.0 Absolute Nucleated RBC 0.000 Nucleated RBC % (auto) 0.0 PT 11.2 INR 1.0 aPTT Heparin Protocol 62.1 Troponin I High Sens B-Natriuretic Peptide Triglycerides Cholesterol LDL Cholesterol, Calc HDL Cholesterol 03/27/22 03/27/22 03/27/22 08:30 08:30 08:30 WBC RBC Hgb Hct MCV MCH MCHC RDW Plt Count MPV Absolute Nucleated RBC Nucleated RBC % (auto) PT INR aPTT Heparin Protocol 51.2 L Troponin I High Sens 743.3 H* B-Natriuretic Peptide Triglycerides 96 Cholesterol 174 LDL Cholesterol, Calc 93 HDL Cholesterol 62 ECG Interpretation: EKG with sinus bradycardia, sinus arrhythmia but no clear ischemic changes. Normal TX and corrected QT. another EKG shows sinus tachycardia and nonspecific ST-T changes. Assessment and Plan (1) Acute non-ST elevation myocardial infarction (NSTEMI): Status: Acute (2) Asthma with exacerbation: Status: Acute Plan Troponin trend reviewed. 25 followed by 240 followed by 743. BNP is 31. Chest x-ray Reported to be unremarkable. Overall, this is likely secondary or type 2 NSTEMI related to the acute asthma exacerbation. At this time, she does not have any anginal-type symptoms. Should treat the asthma as she would otherwise due. From cardiac, continue IV heparin. She seems to be on Plavix at baseline and okay to continue that. Continue high-dose statins. Echocardiogram. Eventually ischemia workup. Procedures Date of Service Date of Service: 03/27/22
[2022-03-27] MEDS: Heparin Sodium,Porcine/1/2NS 25,000 UNIT/250 ML IV.SOLN 12 UNIT IVCONT (11:08)
[2022-03-27] MEDS: Heparin Sodium,Porcine 5,000 UNIT/ML VIAL 3500 UNIT IVPUSH ×2 (11:09→22:41)
[2022-03-27] MEDS: Acetaminophen 325 MG TABLET 650 MG PO (11:14)
--- NOTE | 2022-03-27 12:02 | HO.PM.IMPN ---
Subjective Subjective Date of Service: 03/27/22 Interval History: patient feels significantly better this morning blood shortness of breath, no cough, no chest pain, no palpitation, denies headache lightheadedness dizziness, no acute events overnight. Review of Systems General no fevers, no chills CVS no chest pain, no palpitation. Gastrointestinal no nausea no vomiting, no abdominal pain Review of Systems: Yes all other systems are reviewed and are negative Physical Exam Vital Signs: Vital Signs: Last Vital Signs Temp 98.9 F 03/27/22 11:06 Pulse 102 H 03/27/22 11:38 Resp 17 03/27/22 11:38 BP 166/73 H 03/27/22 11:06 Pulse Ox 92 03/27/22 11:06 O2 Del Method 03/27/22 11:06 BMI result Body Mass Index 36.8 Const: Other: General? patient a wake alert, in no acute distress.? a nicteric sclera Ne ck supple no JVD. CVS? regular rate rhythm, no murmurs Respiratory lungs ? diminished breat h sound, scattere d expiratory wheez e, no crackles, no use of accessory muscles Gastrointe stinal abdomen sof t, non tender, bow el sounds audible, no no guarding , no rigidity. Extre mities no edema. N euro nonfocal Skin no rash psych edson ropriate affect Objective Data Active Medications Acetaminophen (Acetaminophen 325 Mg Tablet) 650 mg PO Q6H PRN PRN Reason: Pain, Mild (Pain Scale 1-3) Last Admin: 03/27/22 11:14 Dose: 650 mg Documented By: RODERICK Albuterol Sulfate (Albuterol Sulfate 90 Mcg 8 Gm Inhaler) 2 puff INHALE Q4H PRN PRN Reason: wheezing Aripiprazole (Aripiprazole 15 Mg Tablet) 15 mg PO DAILY [facility] Last Admin: 03/27/22 08:34 Dose: 15 mg Documented By: RODERICK Atorvastatin Calcium (Atorvastatin Calcium 80 Mg Tablet) 80 mg PO DAILY [facility] Last Admin: 03/27/22 08:34 Dose: 80 mg Documented By: RODERICK Benztropine Mesylate (Benztropine Mesylate 0.5 Mg Tablet) 0.5 mg PO BEDTIME [facility] Last Admin: 03/26/22 21:55 Dose: 0.5 mg Documented By: WARREN Clopidogrel Bisulfate (Clopidogrel Bisulfate 75 Mg Tablet) 75 mg PO DAILY [facility] Last Admin: 03/27/22 08:35 Dose: 75 mg Documented By: RODERICK Escitalopram Oxalate (Escitalopram Oxalate 20 Mg Tablet) 20 mg PO DAILY [facility] Last Admin: 03/27/22 08:35 Dose: 20 mg Documented By: RODERICK Furosemide (Furosemide 20 Mg Tablet) 20 mg PO DAILY [facility]; Protocol Last Admin: 03/27/22 08:34 Dose: 20 mg Documented By: RODERICK Guaifenesin/Dextromethorphan (Guaifenesin Dm 100/10/5 Ml 5 Ml Syrup) 10 ml PO TID [facility] Last Admin: 03/27/22 08:34 Dose: 10 ml Documented By: RODERICK Heparin Sodium (Porcine) (Heparin Sodium,Porcine 5,000 Unit/Ml Vial) 3,500 unit 40 unit/kg (3500 unit) IVPUSH PROTOCOL BOLUS PRN; Protocol PRN Reason: 40 unit/kg - Heparin Protocol Last Admin: 03/27/22 11:09 Dose: 3,500 unit Documented By: RODERICK Heparin Sodium (Porcine) (Heparin Sodium,Porcine 5,000 Unit/Ml Vial) 7,100 unit 80 unit/kg (7100 unit) IVPUSH PROTOCOL BOLUS PRN; Protocol PRN Reason: 80 unit/kg - Heparin Protocol Heparin Sodium/Sodium Chloride (Heparin Sodium,Porcine/1/2ns) 25,000 unit in 250 mls @ 0 mls/hr IVCONT .Q0M [facility]; Protocol Last Admin: 03/27/22 11:08 Dose: 13.59 units/kg/hr, 12 mls/hr Documented By: RODERICK Co-signed By: SAUL-SOFFA Azithromycin 500 mg/ Sodium (Chloride) 250 mls @ 125 mls/hr IV Q24H [facility] Last Infusion: 03/26/22 19:32 Dose: 0 mls/hr Documented By: WARREN Latanoprost (Latanoprost 0.005 % Ophth Deborah 2.5 Ml Drops) 1 drop EYE-BOTH BEDTIME [facility] Last Admin: 03/26/22 22:53 Dose: 1 drop Documented By: WARREN Levalbuterol HCl (Levalbuterol Hcl 1.25 Mg/0.5 Ml Vial.Neb) 1.25 mg INHALE RQ4H WHILE AWAKE [facility] Last Admin: 03/27/22 11:36 Dose: 1.25 mg Documented By: KIT Melatonin (Melatonin 3 Mg Tablet) 3 mg PO BEDTIME PRN PRN Reason: Insomnia Methylprednisolone Sodium Succinate (Methylprednisolone Sod Succ 125 Mg/2 Ml Vial) 40 mg IVPUSH Q8H [facility] Last Admin: 03/27/22 06:00 Dose: 40 mg Documented By: GATO Ondansetron HCl (Ondansetron Hcl 4 Mg/2 Ml Vial) 4 mg IVPUSH Q8H PRN PRN Reason: Nausea and Vomiting Pharmacy Consult (Consult Rx Perform Med Rec) 1 each MISCELLANE ONCE PRN PRN Reason: Consult order Sodium Chloride (0.9 % Sodium Chloride Flush 3 Ml Syringe) 3 ml IVFLUSH QSHIFT [facility] Last Admin: 03/27/22 08:39 Dose: Not Given Documented By: RODERICK Non-Admin Reason: IV Running Spironolactone (Spironolactone 25 Mg Tablet) 50 mg PO DAILY [facility]; Protocol Last Admin: 03/27/22 08:34 Dose: 50 mg Documented By: RODERICK Trazodone HCl (Trazodone Hcl 50 Mg Tablet) 50 mg PO BEDTIME PRN PRN Reason: insomnia Last Admin: 03/26/22 21:55 Dose: 50 mg Documented By: WARREN Verapamil HCl (Verapamil Hcl 40 Mg Tablet) 40 mg PO TID [facility]; Protocol Last Admin: 03/27/22 08:35 Dose: 40 mg Documented By: RODERICK Labs CBC & Chem 7: 03/27/22 08:30 03/26/22 07:33 Labs: Laboratory Results - last 24 hr 03/26/22 03/27/22 03/27/22 19:28 02:04 08:30 MCV 90.3 MCH 30.4 MCHC 33.7 RDW 12.6 Plt Count 332 MPV 10.0 Absolute Nucleated RBC 0.000 Nucleated RBC % (auto) 0.0 PT INR aPTT Heparin Protocol 76.6 62.1 Troponin I High Sens Triglycerides Cholesterol LDL Cholesterol, Calc HDL Cholesterol 03/27/22 03/27/22 03/27/22 08:30 08:30 08:30 MCV MCH MCHC RDW Plt Count MPV Absolute Nucleated RBC Nucleated RBC % (auto) PT 11.2 INR 1.0 aPTT Heparin Protocol 51.2 L Troponin I High Sens Triglycerides 96 Cholesterol 174 LDL Cholesterol, Calc 93 HDL Cholesterol 62 03/27/22 08:30 MCV MCH MCHC RDW Plt Count MPV Absolute Nucleated RBC Nucleated RBC % (auto) PT INR aPTT Heparin Protocol Troponin I High Sens 743.3 H* Triglycerides Cholesterol LDL Cholesterol, Calc HDL Cholesterol Assessment and Plan (1) Asthma with exacerbation: Status: Acute (2) Acute non-ST elevation myocardial infarction (NSTEMI): Status: Acute Plan 71-year-old female patient with past medical history significant for asthma, hypertension, history of bloody diarrhea with aspirin, unknown allergy to Cardizem presented to [facility] with 2-3 days history of dry cough associated with shortness of breath not responding to home inhalers, in the ER patient workup showed a normal chest x-ray, elevated troponin normal BNP, normal electrolyte and CBC, EKG showed no acute ischemia? on examination patient noted to have bilateral expiratory wheeze suggestive of acute asthma exacerbation likely contributing to non ST-elevation CO. ?non ST-elevation CO type B due to acute asthma exacerbation ? no chest pain on IV heparin x 48h, lipitor , continue Plavix? since allergy to aspirin and continue verapamil for tachycardia troponin 25- 240- 743 seen by Cardiology they agree with above management follow echocardiogram, will need ischemic workup as per Cardio ?acute asthma exacerbation with underlying history of mild intermittent asthma ? persistent mild symptoms continue IV Solu Medrol, Xopenex q.4 hours while awake, cough medication, azithromycin to decrease inflammation, continue close clinical follow ?hypertension continue home dose of Lasix, and Aldactone and placed on verapamil, since allergy to diltiazem and avoided beta-blockers for asthma ? mood disorder will resume home medication Lexapro, benztropine, and Abilify ?Code status full code ? in my clinical judgment patient need continued with inpatient stay due to non ST-elevation CO and acute asthma exacerbation, on IV heparin and iv steroids Quality Stroke Does the patient have a stroke diagnosis?: No VTE Prior VTE?: No VTE Risk Level:: Medical - moderate - high VTE Device Contraindication: Treatment Not Indicated VTE Drug Contraindication: N/A - Med Ordered
[2022-03-27] MEDS: Azithromycin 500 MG in 0.9 % Sodium Chloride 250 ML 125 MG IV (15:26)
[2022-03-27] MEDS: 0.9 % Sodium Chloride Flush 3 ML SYRINGE IVFLUSH (15:33)
[2022-03-27 15:37] LABS: PTT Heparin Drip 102.4 SEC (53-77.9)
[2022-03-27] MEDS: Benztropine Mesylate 0.5 MG TABLET PO (22:19)
[2022-03-27] MEDS: Latanoprost 0.005 % Ophth Sol 2.5 ML DROPS 1 DROP EYE-BOTH (22:20)
[2022-03-27] MEDS: traZODone HCL 50 MG TABLET PO (22:22)
[2022-03-28] VITALS (11 sets, daily range): BP systolic 133–170; BP diastolic 67–74; PULSE 85–114; RESP 17–22; TEMP 36.5–37.2; O2SAT 92–98
[2022-03-28 04:38] LABS: PTT Heparin Drip 74.8 SEC (53-77.9)
[2022-03-28 04:58] LABS: Estimated Average Glucose 117 mg/dL; Hemoglobin A1C 149.3083 umol/L; Hemoglobin A1c % 5.7 %
[2022-03-28] MEDS: methylPREDNISolone Sod Succ 125 MG/2 ML VIAL 40 MG IVPUSH ×2 (06:50→15:56)
[2022-03-28] MEDS: 0.9 % Sodium Chloride Flush 3 ML SYRINGE IVFLUSH ×2 (09:21→15:58)
[2022-03-28] MEDS: VerapamiL HCL 40 MG TABLET PO ×3 (09:21→20:56)
[2022-03-28] MEDS: Atorvastatin Calcium 80 MG TABLET PO (09:21)
[2022-03-28] MEDS: Clopidogrel Bisulfate 75 MG TABLET PO (09:21)
[2022-03-28] MEDS: Spironolactone 25 MG TABLET 50 MG PO (09:22)
[2022-03-28] MEDS: Furosemide 20 MG TABLET PO (09:22)
[2022-03-28] MEDS: guaiFENesin DM 100/10/5 ML 5 ML SYRUP 10 ML PO ×3 (09:23→20:56)
[2022-03-28] MEDS: Escitalopram Oxalate 20 MG TABLET PO (09:23)
[2022-03-28 09:26] LABS: PTT Heparin Drip 61.6 SEC (53-77.9)
[2022-03-28] MEDS: ARIPiprazole 15 MG TABLET PO (09:29)
--- NOTE | 2022-03-28 09:52 | PM.PNCARD ---
Subjective Subjective Date of Service: 03/28/22 Interval history: Short of breath, wheezy, respiratory symptoms but no cardiac symptoms. Review of Systems Review of Systems Yes all other systems are reviewed and are negative Constitutional: Reports as per HPI Eyes: Reports as per HPI Reports as per HPI Cardiovascular: Reports as per HPI, Denies acrocyanosis, Denies cool extremities, Denies chest pain, Denies leg edema, Denies lightheadedness, Denies palpitations, Reports dyspnea and Reports dyspnea on exertion Respiratory: Reports as per HPI, Reports chest congestion, Reports cough, Reports dyspnea, Reports dyspnea on exertion and Reports wheezing Gastrointestinal: Reports as per HPI and Reports no additional gastrointestinal complaints Genitourinary: Reports as per HPI Musculoskeletal: Reports no additional musculoskeletal complaints and Reports as per HPI Skin/Breast: Reports system reviewed and no additional complaints, except as docu Reports system reviewed and no additional complaints, except as documented and Reports as per HPI Psychiatric: Reports no additional psychiatric complaints and Reports as per HPI Endocrine: Reports no additional endocrine complaints, Reports as per HPI and Denies palpitations Hematologic/Lymphatic: Reports no additional hematologic/lymphatic complaints and Reports as per HPI Allergic/Immunologic: Reports no additional allergic/immunologic complaints, Reports as per HPI and Reports wheezing Physical Exam Vital Signs: Last Vital Signs Temp 98.3 F 03/28/22 07:17 Pulse 96 03/28/22 07:53 Resp 20 03/28/22 07:53 BP 133/68 03/28/22 07:17 Pulse Ox 95 03/28/22 07:17 O2 Del Method 03/28/22 07:17 BMI result Body Mass Index 36.8 Const General: comfortable, in distress, ill appearing and tired appearing Orientation/consciousness: patient oriented x3 HEENT Other: Unremarkable Head: Yes normal to inspection Neck Neck: Yes normal visual inspection Chest Chest palpation & inspection: normal inspection of the chest Resp Auscultation: rhonchi, wheezes and diminished lung sounds Cardio Palpation: normal PMI Heart sounds: S1 normal heart sound present, S2 normal heart sound present, no gallops, no murmurs and no rubs GI Palpation (GI): Soft to palpation Back/Spine/Pelvis Other: unremarkable Skin General skin exam: no rashes or lesions noted Neuro General: patient oriented x3 Extrem General: Yes normal to inspection Psych Mental Status: mental status grossly normal Objective Labs and Meds Result diagrams: 03/27/22 08:30 03/26/22 07:33 Lab results: Laboratory Results - last 24 hr 03/27/22 03/27/22 03/27/22 15:16 17:13 22:02 aPTT Heparin Protocol 102.4 H D Cancelled 43.0 L D Estimat Average Glucose Hemoglobin A1c % 03/28/22 03/28/22 03/28/22 04:24 04:24 08:44 aPTT Heparin Protocol 74.8 D 61.6 Estimat Average Glucose 117 Hemoglobin A1c % 5.7 Progress Note: A&P Assessment and plan (1) Acute non-ST elevation myocardial infarction (NSTEMI): Status: Acute Assessment and Plan: Echocardiogram shows hyperdynamic LVEF. No clear wall motion abnormalities. Mild aortic and mitral valve calcifications. Overall, this is demand related NSTEMI related to acute asthma. She does not have any clear-cut anginal-type symptoms at this time. Treat with IV heparin for 48 hours total. Statins. She is on Plavix long-term and can be continued. Eventually, ischemia workup when she is more stable from respiratory standpoint. (2) Asthma with exacerbation: Status: Acute Assessment and Plan: She is wheezy, short of breath. Symptoms/signs consistent with asthma. Aggressive nebulizers, respiratory treatments, steroids and possibly pulmonary consultation. She does have sinus tachycardia related to respiratory compromise. On some verapamil that is okay to continue. Time Spent With Patient Time: Total time spent is greater than 50% in coordination of care (as documented) at patient's floor/unit and/or counseling patient: 35min. Progress Note: Quality Stroke Does the patient have a stroke diagnosis?: No Procedures Date of Service Date of Service: 03/28/22
[2022-03-28] MEDS: Heparin Sodium,Porcine/1/2NS 25,000 UNIT/250 ML IV.SOLN 10.6 UNIT IVCONT (12:12)
[2022-03-28] MEDS: Heparin Sodium,Porcine 5,000 UNIT/ML VIAL 3500 UNIT IVPUSH (15:56)
[2022-03-28] MEDS: Azithromycin 500 MG in 0.9 % Sodium Chloride 250 ML 125 MG IV (15:57)
--- NOTE | 2022-03-28 16:36 | HO.PM.IMPN ---
Subjective Subjective Date of Service: 03/28/22 Interval History: Still short of breath with minimal exertion Review of Systems Denies chest pain Denies shortness of breath Denies nausea vomiting diarrhea Physical Exam Vital Signs: Vital Signs: Last Vital Signs Temp 98.9 F 03/28/22 15:24 Pulse 89 03/28/22 15:24 Resp 18 03/28/22 15:24 BP 145/67 H 03/28/22 15:24 Pulse Ox 97 03/28/22 15:24 O2 Del Method 03/28/22 15:24 O2 Flow Rate 3 03/28/22 15:24 BMI result Body Mass Index 36.8 Const: Other: Awake alert oriented x3 able speak in full sentences Resp: Other: Diminished to bases; dense expiratory wheezes throughout Cardio: Other: No S4; positive S1-S2; no S3 murmurs rubs or gallops GI: Other: Soft nontender nondistended normoactive bowel sounds Extrem: Other: No edema bilaterally Objective Data Active Medications Acetaminophen (Acetaminophen 325 Mg Tablet) 650 mg PO Q6H PRN PRN Reason: Pain, Mild (Pain Scale 1-3) Last Admin: 03/27/22 11:14 Dose: 650 mg Documented By: RODERICK Albuterol Sulfate (Albuterol Sulfate 90 Mcg 8 Gm Inhaler) 2 puff INHALE Q4H PRN PRN Reason: wheezing Albuterol/Ipratropium (Albuterol/Iprat 2.5/0.5mg 3 Ml Ampul.Neb) 3 ml INHALE RQ4H PRN PRN Reason: Shortness of Breath/Wheezing Aripiprazole (Aripiprazole 15 Mg Tablet) 15 mg PO DAILY [facility] Last Admin: 03/28/22 09:29 Dose: 15 mg Documented By: ERICA Atorvastatin Calcium (Atorvastatin Calcium 80 Mg Tablet) 80 mg PO DAILY [facility] Last Admin: 03/28/22 09:21 Dose: 80 mg Documented By: ERICA Benzonatate (Benzonatate 100 Mg Capsule) 100 mg PO TID PRN PRN Reason: Cough Benztropine Mesylate (Benztropine Mesylate 0.5 Mg Tablet) 0.5 mg PO BEDTIME [facility] Last Admin: 03/27/22 22:19 Dose: 0.5 mg Documented By: DILCIA Clopidogrel Bisulfate (Clopidogrel Bisulfate 75 Mg Tablet) 75 mg PO DAILY [facility] Last Admin: 03/28/22 09:21 Dose: 75 mg Documented By: ERICA Escitalopram Oxalate (Escitalopram Oxalate 20 Mg Tablet) 20 mg PO DAILY [facility] Last Admin: 03/28/22 09:23 Dose: 20 mg Documented By: ERICA Furosemide (Furosemide 20 Mg Tablet) 20 mg PO DAILY [facility]; Protocol Last Admin: 03/28/22 09:22 Dose: 20 mg Documented By: ERICA Guaifenesin/Dextromethorphan (Guaifenesin Dm 100/10/5 Ml 5 Ml Syrup) 10 ml PO TID [facility] Last Admin: 03/28/22 15:55 Dose: 10 ml Documented By: ERICA Heparin Sodium (Porcine) (Heparin Sodium,Porcine 5,000 Unit/Ml Vial) 3,500 unit 40 unit/kg (3500 unit) IVPUSH PROTOCOL BOLUS PRN; Protocol PRN Reason: 40 unit/kg - Heparin Protocol Last Admin: 03/28/22 15:56 Dose: 3,500 unit Documented By: ERICA Heparin Sodium (Porcine) (Heparin Sodium,Porcine 5,000 Unit/Ml Vial) 7,100 unit 80 unit/kg (7100 unit) IVPUSH PROTOCOL BOLUS PRN; Protocol PRN Reason: 80 unit/kg - Heparin Protocol Heparin Sodium/Sodium Chloride (Heparin Sodium,Porcine/1/2ns) 25,000 unit in 250 mls @ 0 mls/hr IVCONT .Q0M [facility]; Protocol Last Titration: 03/28/22 16:10 Dose: 14 units/kg/hr, 12.36 mls/hr Documented By: ERICA Co-signed By: ANUP Azithromycin 500 mg/ Sodium (Chloride) 250 mls @ 125 mls/hr IV Q24H [facility] Last Admin: 03/28/22 15:57 Dose: 125 mls/hr Documented By: ERICA Latanoprost (Latanoprost 0.005 % Ophth Deborah 2.5 Ml Drops) 1 drop EYE-BOTH BEDTIME [facility] Last Admin: 03/27/22 22:20 Dose: 1 drop Documented By: DILCIA Levalbuterol HCl (Levalbuterol Hcl 1.25 Mg/0.5 Ml Vial.Neb) 1.25 mg INHALE RQ4H WHILE AWAKE [facility] Last Admin: 03/28/22 15:03 Dose: 1.25 mg Documented By: FANNY Melatonin (Melatonin 3 Mg Tablet) 3 mg PO BEDTIME PRN PRN Reason: Insomnia Methylprednisolone Sodium Succinate (Methylprednisolone Sod Succ 125 Mg/2 Ml Vial) 40 mg IVPUSH Q8H [facility] Last Admin: 03/28/22 15:56 Dose: 40 mg Documented By: ERICA Ondansetron HCl (Ondansetron Hcl 4 Mg/2 Ml Vial) 4 mg IVPUSH Q8H PRN PRN Reason: Nausea and Vomiting Pharmacy Consult (Consult Rx Perform Med Rec) 1 each MISCELLANE ONCE PRN PRN Reason: Consult order Sodium Chloride (0.9 % Sodium Chloride Flush 3 Ml Syringe) 3 ml IVFLUSH QSHIFT [facility] Last Admin: 03/28/22 15:58 Dose: 3 ml Documented By: ERICA Spironolactone (Spironolactone 25 Mg Tablet) 50 mg PO DAILY [facility]; Protocol Last Admin: 03/28/22 09:22 Dose: 50 mg Documented By: ERICA Trazodone HCl (Trazodone Hcl 50 Mg Tablet) 50 mg PO BEDTIME PRN PRN Reason: insomnia Last Admin: 03/27/22 22:22 Dose: 50 mg Documented By: DILCIA Verapamil HCl (Verapamil Hcl 40 Mg Tablet) 40 mg PO TID [facility]; Protocol Last Admin: 03/28/22 15:55 Dose: 40 mg Documented By: ERICA Labs CBC & Chem 7: 03/27/22 08:30 03/26/22 07:33 Labs: Laboratory Results - last 24 hr 03/27/22 03/27/22 03/28/22 17:13 22:02 04:24 aPTT Heparin Protocol Cancelled 43.0 L D Estimat Average Glucose 117 Hemoglobin A1c % 5.7 03/28/22 03/28/22 03/28/22 04:24 08:44 15:03 aPTT Heparin Protocol 74.8 D 61.6 40.0 L D Estimat Average Glucose Hemoglobin A1c % Assessment and Plan (1) Asthma with exacerbation: Status: Acute (2) Acute non-ST elevation myocardial infarction (NSTEMI): Status: Acute Plan 71-year-old female patient with past medical history significant for asthma, hypertension, history of bloody diarrhea with aspirin, unknown allergy to Cardizem presented to [facility] with 2-3 days history of dry cough associated with shortness of breath not responding to home inhalers, in the ER patient workup showed a normal chest x-ray, elevated troponin normal BNP, normal electrolyte and CBC, EKG showed no acute ischemia? on examination patient noted to have bilateral expiratory wheeze suggestive of acute asthma exacerbation likely contributing to non ST-elevation HI. 1.NSTEMI type B due - IV heparin x 48h/ lipitor/Plavix? -echo with hyperdynamic EF; no wall motion abnormality -as per Cardiology workup after exacerbation complete 2.Acute asthma exacerbation -continue Solu-Medrol; increased to q.6 hours -q.4 hours open next while awake 3.Hypertension -acceptable control on current therapies -adjust as indicated ? ?Full code Heparin ?Will require ongoing hospitalization for IV heparin and treatment of asthma exacerbation with IV steroids Quality Stroke Does the patient have a stroke diagnosis?: No VTE Prior VTE?: No VTE Risk Level:: Medical - moderate - high VTE Device Contraindication: Treatment Not Indicated VTE Drug Contraindication: N/A - Med Ordered
[2022-03-28] MEDS: Benztropine Mesylate 0.5 MG TABLET PO (20:56)
[2022-03-28] MEDS: methylPREDNISolone Sod Succ 125 MG/2 ML VIAL IVPUSH (20:56)
[2022-03-28] MEDS: traZODone HCL 50 MG TABLET PO (20:56)
[2022-03-28] MEDS: Latanoprost 0.005 % Ophth Sol 2.5 ML DROPS 1 DROP EYE-BOTH (20:56)
[2022-03-28 22:45] LABS: PTT Heparin Drip 89.9 SEC (53-77.9)
[2022-03-29] VITALS (10 sets, daily range): BP systolic 140–161; BP diastolic 65–79; PULSE 78–97; RESP 16–20; TEMP 36.4–37.1; O2SAT 92–96
--- NOTE | 2022-03-29 | ECG_ITS ---
Test Reason : Chest Pain Blood Pressure : / mmHG Vent. Rate : 096 BPM Atrial Rate : 096 BPM P-R Int : 128 ms QRS Dur : 074 ms QT Int : 360 ms P-R-T Axes : 055 013 008 degrees QTc Int : 454 ms Normal sinus rhythm Nonspecific T wave abnormality Abnormal ECG When compared with ECG of 26-MAR-2022 13:46, Vent. rate has increased BY 39 BPM Questionable change in QRS axis Nonspecific T wave abnormality now evident in Inferior leads Nonspecific T wave abnormality, worse in Anterolateral leads Referred By: Ren Justin Electronically Signed By:BRICE SPRINGER MD
[2022-03-29 07:26] LABS: PTT Heparin Drip 66.1 SEC (53-77.9)
[2022-03-29] MEDS: VerapamiL HCL 40 MG TABLET PO ×3 (09:00→21:17)
[2022-03-29] MEDS: Spironolactone 25 MG TABLET 50 MG PO (09:00)
[2022-03-29] MEDS: Atorvastatin Calcium 80 MG TABLET PO (09:00)
[2022-03-29] MEDS: ARIPiprazole 15 MG TABLET PO (09:00)
[2022-03-29] MEDS: Escitalopram Oxalate 20 MG TABLET PO (09:00)
[2022-03-29] MEDS: Clopidogrel Bisulfate 75 MG TABLET PO (09:00)
[2022-03-29] MEDS: Furosemide 20 MG TABLET PO (09:00)
[2022-03-29] MEDS: guaiFENesin DM 100/10/5 ML 5 ML SYRUP 10 ML PO ×3 (09:01→21:17)
--- NOTE | 2022-03-29 10:40 | PM.PNCARD ---
Subjective Subjective Date of Service: 03/29/22 Interval history: Patient states that she had chest discomfort today. She had a squeezing-type sensation for about 15 minutes or so. Subsequently, improved. Currently, she is back to normal self. Overall, shortness of breath is improved from before. Review of Systems Review of Systems Yes all other systems are reviewed and are negative Constitutional: Reports as per HPI Eyes: Reports as per HPI Reports as per HPI Cardiovascular: Reports as per HPI, Denies acrocyanosis, Denies cool extremities, Reports chest pain, Denies leg edema, Denies lightheadedness, Denies palpitations and Reports dyspnea Respiratory: Reports as per HPI, Reports no additional respiratory complaints and Reports dyspnea Gastrointestinal: Reports as per HPI and Reports no additional gastrointestinal complaints Genitourinary: Reports as per HPI Musculoskeletal: Reports no additional musculoskeletal complaints and Reports as per HPI Skin/Breast: Reports system reviewed and no additional complaints, except as docu Reports system reviewed and no additional complaints, except as documented and Reports as per HPI Psychiatric: Reports no additional psychiatric complaints and Reports as per HPI Endocrine: Reports no additional endocrine complaints, Reports as per HPI and Denies palpitations Hematologic/Lymphatic: Reports no additional hematologic/lymphatic complaints and Reports as per HPI Allergic/Immunologic: Reports no additional allergic/immunologic complaints and Reports as per HPI Physical Exam Vital Signs: Last Vital Signs Temp 97.5 F 03/29/22 08:00 Pulse 82 03/29/22 08:00 Resp 16 03/29/22 08:00 BP 153/70 H 03/29/22 08:00 Pulse Ox 95 03/29/22 08:00 O2 Del Method 03/29/22 08:00 O2 Flow Rate 2 03/29/22 08:00 BMI result Body Mass Index 36.8 Const General: comfortable and no acute distress Orientation/consciousness: patient oriented x3 HEENT Other: Unremarkable Head: Yes normal to inspection Neck Neck: Yes normal visual inspection Chest Chest palpation & inspection: normal inspection of the chest Resp Other: Much improved wheezing compared to yesterday. Cardio Palpation: normal PMI Heart sounds: S1 normal heart sound present, S2 normal heart sound present, no gallops, Murmur heart sound present systolic early, I/ and at the right sternal border and no rubs GI Palpation (GI): Soft to palpation Back/Spine/Pelvis Other: unremarkable Skin General skin exam: no rashes or lesions noted Neuro General: patient oriented x3 Extrem General: Yes normal to inspection Psych Mental Status: mental status grossly normal Objective Labs and Meds Result diagrams: 03/27/22 08:30 03/26/22 07:33 Lab results: Laboratory Results - last 24 hr 03/28/22 03/28/22 03/29/22 15:03 22:20 06:46 aPTT Heparin Protocol 40.0 L D 89.9 H D 66.1 D Progress Note: A&P Assessment and plan (1) Acute non-ST elevation myocardial infarction (NSTEMI): Status: Acute Plan EKG shows sinus rhythm and nonspecific ST-T changes. Seems change from earlier EKG as the nonspecific changes were not previously seen. The chest discomfort she had today could be either cardiac or from the asthma itself or gastroesophageal reflux from high-dose steroids. Repeat troponin is pending. Overall, asthma itself seems to be improving. Eventually, cardiac catheterization needs to be completed, once respiratory status is stable. In the interim, medical management of NSTEMI as currently on. Discussed with Dr. Justin. Time Spent With Patient Time: Total time spent is greater than 50% in coordination of care (as documented) at patient's floor/unit and/or counseling patient: 32min. Progress Note: Quality Stroke Does the patient have a stroke diagnosis?: No Procedures Date of Service Date of Service: 03/29/22
[2022-03-29] MEDS: Heparin Sodium,Porcine/1/2NS 25,000 UNIT/250 ML IV.SOLN 10.6 UNIT IVCONT (10:45)
[2022-03-29 10:52] LABS: Troponin-I High Sensitivity 87.5 ng/L (<3.5-17.0)
[2022-03-29 13:30] LABS: PTT Heparin Drip 46.8 SEC (53-77.9)
[2022-03-29 13:48] LABS: Troponin-I High Sensitivity 82.9 ng/L (<3.5-17.0)
[2022-03-29] MEDS: Heparin Sodium,Porcine 5,000 UNIT/ML VIAL 3500 UNIT IVPUSH (13:58)
[2022-03-29] MEDS: Azithromycin 500 MG in 0.9 % Sodium Chloride 250 ML 125 MG IV (15:32)
--- NOTE | 2022-03-29 19:24 | PC.NURSE ---
pt c/o substernal chest pain nonradiation, 09/13, acute, squeezing along with SOB. MD informed, vitals obtained, ECG and labs obtained. morphine was ordered but pt refused by the time med was verified and appearing in pyxis, per pt the pain subsided on its own. MD viewed ECG and informed of critical Trop levels.
[2022-03-29 20:30] LABS: PTT Heparin Drip 92.4 SEC (53-77.9)
--- NOTE | 2022-03-29 21:13 | PC.NURSE ---
AT 1999 PTTHD TOO HIGH =92.4 DECREASED drip to 12 u/kg/h next ptthd at 0300 03/30/22
[2022-03-29] MEDS: Latanoprost 0.005 % Ophth Sol 2.5 ML DROPS 1 DROP EYE-BOTH (21:17)
[2022-03-29] MEDS: Benztropine Mesylate 0.5 MG TABLET PO (21:17)
[2022-03-30] VITALS (12 sets, daily range): BP systolic 139–181; BP diastolic 68–79; PULSE 78–108; RESP 14–20; TEMP 36.2–37.2; O2SAT 92–96
[2022-03-30 03:30] LABS: PTT Heparin Drip 65.1 SEC (53-77.9)
--- NOTE | 2022-03-30 03:57 | PC.NURSE ---
at 0300 ptt hd 65.1 no change in rate 12u/kg/hr first therapeutic ; next PTTHD a 1000 am
[2022-03-30 07:35] LABS: Alanine Aminotransferase 23 U/L (0-31); Alkaline Phosphatase 55 U/L (39-117); Anion Gap 16 (12-20); Aspartate Amino Transferase 18 U/L (5-31); Bilirubin Total 0.6 mg/dL (0.0-1.0); Blood Urea Nitrogen 22 mg/dL (9-16); Calcium 8.2 mg/dL (8.4-10.2); Carbon Dioxide 23 mmol/L (22-29); Chloride 104 mmol/L (96-108); Creatinine Clr Calc Pharmacy 71.4; Estimated Glomerular Filt Rate > 60; Glucose Fasting 136 mg/dL (60-99); Potassium 3.6 mmol/L (3.3-5.1); Sodium 139 mmol/L (135-145); Total Protein 6.5 g/dL (6.5-8.0)
[2022-03-30] MEDS: Heparin Sodium,Porcine/1/2NS 25,000 UNIT/250 ML IV.SOLN 10.6 UNIT IVCONT (09:13)
[2022-03-30] MEDS: Escitalopram Oxalate 20 MG TABLET PO (09:15)
[2022-03-30] MEDS: Atorvastatin Calcium 80 MG TABLET PO (09:15)
[2022-03-30] MEDS: Furosemide 20 MG TABLET PO (09:15)
[2022-03-30] MEDS: VerapamiL HCL 40 MG TABLET PO ×3 (09:15→20:12)
[2022-03-30] MEDS: guaiFENesin DM 100/10/5 ML 5 ML SYRUP 10 ML PO ×3 (09:15→20:12)
[2022-03-30] MEDS: ARIPiprazole 15 MG TABLET PO (09:15)
[2022-03-30] MEDS: Spironolactone 25 MG TABLET 50 MG PO (09:15)
[2022-03-30] MEDS: Clopidogrel Bisulfate 75 MG TABLET PO (09:16)
[2022-03-30] MEDS: ondansetron HCL 4 MG/2 ML VIAL IVPUSH (09:18)
[2022-03-30 09:55] LABS: PTT Heparin Drip 53.1 SEC (53-77.9)
--- NOTE | 2022-03-30 10:55 | PM.PNCARD ---
Subjective Subjective Date of Service: 03/30/22 Interval history: She states she feels fine. Shortness of breath seems improved. No further chest squeezing or other cardiac symptoms. Review of Systems Review of Systems Yes all other systems are reviewed and are negative Constitutional: Reports as per HPI Eyes: Reports as per HPI Reports as per HPI Cardiovascular: Reports as per HPI, Denies acrocyanosis, Denies cool extremities, Denies chest pain, Denies leg edema, Denies lightheadedness, Denies palpitations and Denies dyspnea Respiratory: Reports as per HPI, Reports no additional respiratory complaints and Denies dyspnea Gastrointestinal: Reports as per HPI and Reports no additional gastrointestinal complaints Genitourinary: Reports as per HPI Musculoskeletal: Reports no additional musculoskeletal complaints and Reports as per HPI Skin/Breast: Reports system reviewed and no additional complaints, except as docu Reports system reviewed and no additional complaints, except as documented and Reports as per HPI Psychiatric: Reports no additional psychiatric complaints and Reports as per HPI Endocrine: Reports no additional endocrine complaints, Reports as per HPI and Denies palpitations Hematologic/Lymphatic: Reports no additional hematologic/lymphatic complaints and Reports as per HPI Allergic/Immunologic: Reports no additional allergic/immunologic complaints and Reports as per HPI Physical Exam Vital Signs: Last Vital Signs Temp 97.4 F 03/30/22 08:00 Pulse 86 03/30/22 08:00 Resp 14 03/30/22 08:00 BP 181/79 H 03/30/22 08:00 Pulse Ox 94 03/30/22 08:00 O2 Del Method 03/30/22 08:00 O2 Flow Rate 1 03/30/22 08:00 BMI result Body Mass Index 36.8 Const General: comfortable and no acute distress Orientation/consciousness: patient oriented x3 HEENT Other: Unremarkable Head: Yes normal to inspection Neck Neck: Yes normal visual inspection Chest Chest palpation & inspection: normal inspection of the chest Resp Auscultation: clear to auscultation bilaterally Cardio Palpation: normal PMI Heart sounds: S1 normal heart sound present, S2 normal heart sound present, no gallops, no murmurs and no rubs GI Palpation (GI): Soft to palpation Back/Spine/Pelvis Other: unremarkable Skin General skin exam: no rashes or lesions noted Neuro General: patient oriented x3 Extrem General: Yes normal to inspection Psych Mental Status: mental status grossly normal Objective Labs and Meds Result diagrams: 03/27/22 08:30 03/30/22 06:03 Lab results: Laboratory Results - last 24 hr 03/29/22 03/29/22 03/29/22 13:12 13:12 20:09 aPTT Heparin Protocol 46.8 L D 92.4 H D Sodium Potassium Chloride Carbon Dioxide Anion Gap BUN Creatinine Estim Creat Clear Calc Estimated GFR Fasting Glucose Calcium Total Bilirubin AST ALT Alkaline Phosphatase Troponin I High Sens 82.9 H* D Total Protein Albumin 03/30/22 03/30/22 03/30/22 03:06 06:03 09:41 aPTT Heparin Protocol 65.1 D 53.1 Sodium 139 Potassium 3.6 Chloride 104 Carbon Dioxide 23 Anion Gap 16 BUN 22 H Creatinine 0.74 Estim Creat Clear Calc 71.4 Estimated GFR > 60 Fasting Glucose 136 H Calcium 8.2 L D Total Bilirubin 0.6 AST 18 ALT 23 Alkaline Phosphatase 55 Troponin I High Sens Total Protein 6.5 Albumin 4.0 Progress Note: A&P Assessment and plan (1) Acute non-ST elevation myocardial infarction (NSTEMI): Status: Acute Plan Overall, suspected to be demand related NSTEMI. She seems stable otherwise without any recurrent symptoms. Discussed about cardiac catheterization transferred to [facility]. However, patient states that she would not want that and declines catheterization. She wants to just be discharged home when otherwise ready. Hence can keep her on the Plavix. She is also on some verapamil which is okay to continue. Also on statins. Echocardiogram with hyperdynamic LVEF. No clear wall motion abnormalities. Discussed with Dr. Justin. Time Spent With Patient Time: Total time spent is greater than 50% in coordination of care (as documented) at patient's floor/unit and/or counseling patient: 30min. Progress Note: Quality Stroke Does the patient have a stroke diagnosis?: No Procedures Date of Service Date of Service: 03/30/22
--- NOTE | 2022-03-30 11:11 | HO.PM.IMPN ---
Subjective Subjective Date of Service: 03/30/22 Interval History: Shortness of breath improving however still short of breath with exertion Review of Systems Denies chest pain Denies shortness of breath Denies nausea vomiting diarrhea Physical Exam Vital Signs: Vital Signs: Last Vital Signs Temp 97.4 F 03/30/22 08:00 Pulse 86 03/30/22 08:00 Resp 14 03/30/22 08:00 BP 181/79 H 03/30/22 08:00 Pulse Ox 94 03/30/22 08:00 O2 Del Method 03/30/22 08:00 O2 Flow Rate 1 03/30/22 08:00 BMI result Body Mass Index 36.8 Const: Other: Awake alert oriented x3 able speak in full sentences Resp: Other: Diminished to bases; dense expiratory wheezes throughout Cardio: Other: No S4; positive S1-S2; no S3 murmurs rubs or gallops GI: Other: Soft nontender nondistended normoactive bowel sounds Extrem: Other: No edema bilaterally Objective Data Active Medications Acetaminophen (Acetaminophen 325 Mg Tablet) 650 mg PO Q6H PRN PRN Reason: Pain, Mild (Pain Scale 1-3) Last Admin: 03/27/22 11:14 Dose: 650 mg Documented By: RODERICK Albuterol Sulfate (Albuterol Sulfate 90 Mcg 8 Gm Inhaler) 2 puff INHALE Q4H PRN PRN Reason: wheezing Albuterol/Ipratropium (Albuterol/Iprat 2.5/0.5mg 3 Ml Ampul.Neb) 3 ml INHALE RQ4H PRN PRN Reason: Shortness of Breath/Wheezing Aripiprazole (Aripiprazole 15 Mg Tablet) 15 mg PO DAILY [facility] Last Admin: 03/30/22 09:15 Dose: 15 mg Documented By: RAFAT Atorvastatin Calcium (Atorvastatin Calcium 80 Mg Tablet) 80 mg PO DAILY [facility] Last Admin: 03/30/22 09:15 Dose: 80 mg Documented By: RAFAT Benzonatate (Benzonatate 100 Mg Capsule) 100 mg PO TID PRN PRN Reason: Cough Benztropine Mesylate (Benztropine Mesylate 0.5 Mg Tablet) 0.5 mg PO BEDTIME [facility] Last Admin: 03/29/22 21:17 Dose: 0.5 mg Documented By: PJ Clopidogrel Bisulfate (Clopidogrel Bisulfate 75 Mg Tablet) 75 mg PO DAILY [facility] Last Admin: 03/30/22 09:16 Dose: 75 mg Documented By: RAFAT Escitalopram Oxalate (Escitalopram Oxalate 20 Mg Tablet) 20 mg PO DAILY [facility] Last Admin: 03/30/22 09:15 Dose: 20 mg Documented By: RAFAT Furosemide (Furosemide 20 Mg Tablet) 20 mg PO DAILY [facility]; Protocol Last Admin: 03/30/22 09:15 Dose: 20 mg Documented By: RAFAT Guaifenesin/Dextromethorphan (Guaifenesin Dm 100/10/5 Ml 5 Ml Syrup) 10 ml PO TID [facility] Last Admin: 03/30/22 09:15 Dose: 10 ml Documented By: RAFAT Heparin Sodium (Porcine) (Heparin Sodium,Porcine 5,000 Unit/Ml Vial) 3,500 unit 40 unit/kg (3500 unit) IVPUSH PROTOCOL BOLUS PRN; Protocol PRN Reason: 40 unit/kg - Heparin Protocol Last Admin: 03/29/22 13:58 Dose: 3,500 unit Documented By: ERICA Heparin Sodium (Porcine) (Heparin Sodium,Porcine 5,000 Unit/Ml Vial) 7,100 unit 80 unit/kg (7100 unit) IVPUSH PROTOCOL BOLUS PRN; Protocol PRN Reason: 80 unit/kg - Heparin Protocol Heparin Sodium/Sodium Chloride (Heparin Sodium,Porcine/1/2ns) 25,000 unit in 250 mls @ 0 mls/hr IVCONT .Q0M [facility]; Protocol Last Titration: 03/30/22 10:07 Dose: 12 units/kg/hr, 10.6 mls/hr Documented By: RAFAT Co-signed By: LUIS Azithromycin 500 mg/ Sodium (Chloride) 250 mls @ 125 mls/hr IV Q24H [facility] Last Infusion: 03/29/22 17:59 Dose: 0 mls/hr Documented By: ERICA Latanoprost (Latanoprost 0.005 % Ophth Deborah 2.5 Ml Drops) 1 drop EYE-BOTH BEDTIME [facility] Last Admin: 03/29/22 21:17 Dose: 1 drop Documented By: PJ Levalbuterol HCl (Levalbuterol Hcl 1.25 Mg/0.5 Ml Vial.Neb) 1.25 mg INHALE RQ4H WHILE AWAKE [facility] Last Admin: 03/30/22 07:51 Dose: 1.25 mg Documented By: BRENDARICYvette Melatonin (Melatonin 3 Mg Tablet) 3 mg PO BEDTIME PRN PRN Reason: Insomnia Ondansetron HCl (Ondansetron Hcl 4 Mg/2 Ml Vial) 4 mg IVPUSH Q8H PRN PRN Reason: Nausea and Vomiting Last Admin: 03/30/22 09:18 Dose: 4 mg Documented By: RAFAT Pharmacy Consult (Consult Rx Perform Med Rec) 1 each MISCELLANE ONCE PRN PRN Reason: Consult order Prednisone (Prednisone 10 Mg Tablet) 50 mg PO DAILY [facility] Sodium Chloride (0.9 % Sodium Chloride Flush 3 Ml Syringe) 3 ml IVFLUSH QSHIFT [facility] Last Admin: 03/30/22 08:06 Dose: Not Given Documented By: RAFAT Non-Admin Reason: IV Running Spironolactone (Spironolactone 25 Mg Tablet) 50 mg PO DAILY [facility]; Protocol Last Admin: 03/30/22 09:15 Dose: 50 mg Documented By: RAFAT Trazodone HCl (Trazodone Hcl 50 Mg Tablet) 50 mg PO BEDTIME PRN PRN Reason: insomnia Last Admin: 03/28/22 20:56 Dose: 50 mg Documented By: DILCIA Verapamil HCl (Verapamil Hcl 40 Mg Tablet) 40 mg PO TID [facility]; Protocol Last Admin: 03/30/22 09:15 Dose: 40 mg Documented By: RAFAT Labs CBC & Chem 7: 03/27/22 08:30 03/30/22 06:03 Labs: Laboratory Results - last 24 hr 03/29/22 03/29/22 03/29/22 13:12 13:12 20:09 aPTT Heparin Protocol 46.8 L D 92.4 H D Anion Gap Estim Creat Clear Calc Estimated GFR Fasting Glucose Calcium Total Bilirubin AST ALT Alkaline Phosphatase Troponin I High Sens 82.9 H* D Total Protein Albumin 03/30/22 03/30/22 03/30/22 03:06 06:03 09:41 aPTT Heparin Protocol 65.1 D 53.1 Anion Gap 16 Estim Creat Clear Calc 71.4 Estimated GFR > 60 Fasting Glucose 136 H Calcium 8.2 L D Total Bilirubin 0.6 AST 18 ALT 23 Alkaline Phosphatase 55 Troponin I High Sens Total Protein 6.5 Albumin 4.0 Assessment and Plan (1) Acute non-ST elevation myocardial infarction (NSTEMI): Status: Acute (2) Asthma with exacerbation: Status: Acute Plan 71-year-old female patient with past medical history significant for asthma, hypertension, history of bloody diarrhea with aspirin, unknown allergy to Cardizem presented to [facility] with 2-3 days history of dry cough associated with shortness of breath not responding to home inhalers, in the ER patient workup showed a normal chest x-ray, elevated troponin normal BNP, normal electrolyte and CBC, EKG showed no acute ischemia? on examination patient noted to have bilateral expiratory wheeze suggestive of acute asthma exacerbation likely contributing to non ST-elevation HI. 1.NSTEMI type B due -DC IV heparin/ lipitor/Plavix? -echo with hyperdynamic EF; no wall motion abnormality -declines CT 2.Acute asthma exacerbation -continue Solu-Medrol; increased to q.6 hours -q.4 hours open next while awake -titrate O2 3.Hypertension -acceptable control on current therapies -adjust as indicated ? ?Full code Heparin ?Will require ongoing hospitalization for IV heparin and treatment of asthma exacerbation with IV steroids Quality Stroke Does the patient have a stroke diagnosis?: No VTE Prior VTE?: No VTE Risk Level:: Medical - moderate - high VTE Device Contraindication: Treatment Not Indicated VTE Drug Contraindication: N/A - Med Ordered
[2022-03-30] MEDS: 0.9 % Sodium Chloride Flush 3 ML SYRINGE IVFLUSH ×2 (15:07→20:16)
[2022-03-30] MEDS: Azithromycin 500 MG in 0.9 % Sodium Chloride 250 ML 125 MG IV (15:07)
[2022-03-30] MEDS: Benztropine Mesylate 0.5 MG TABLET PO (20:12)
[2022-03-30] MEDS: traZODone HCL 50 MG TABLET PO (20:15)
[2022-03-30] MEDS: Latanoprost 0.005 % Ophth Sol 2.5 ML DROPS 1 DROP EYE-BOTH (20:15)
[2022-03-30] MEDS: Benzonatate 100 MG CAPSULE PO (21:47)
[2022-03-31] VITALS (10 sets, daily range): BP systolic 139–173; BP diastolic 60–78; PULSE 85–101; RESP 15–20; TEMP 36–36.7; O2SAT 92–96
[2022-03-31 06:21] LABS: MANUAL DIFF FLAG NO
[2022-03-31 06:24] LABS: Hematocrit 41.3 % (37.0-47.0); Mean Corpuscular HGB Conc 33.9 g/dl (31.0-35.0); Mean Corpuscular Hemoglobin 30.3 pg (27.0-33.0); Mean Corpuscular Volume 89.4 fL (80.0-98.0); Mean Platelet Volume 10.3 fL (9.4-12.3); Platelet Count 257 X10*3/uL (160-400); Red Blood Count 4.62 X10*6/uL (4.20-5.50); Red Cell Distribution Width 12.7 % (11.0-16.0); White Blood Count 14.3 X10*3/uL (4.8-10.8)
[2022-03-31 06:26] LABS: Basophils Percent Auto 0.1 % (0-2); Eosinophils Absolute Auto 0.1 X10*3/uL (0.0-0.4); Eosinophils Percent Auto 0.9 % (0-4); Hematocrit 41.1 % (37.0-47.0); Hemoglobin 13.9 g/dl (12.0-16.0); Imm Gran Abs Auto 0.12 X10*3/uL (0.00-0.03); Imm Gran Pct Auto 0.9 % (0.0-0.4); Lymphocytes Absolute Auto 3.1 X10*3/uL (1.2-4.9); Lymphocytes Percent Auto 21.7 % (20-40); Mean Corpuscular HGB Conc 33.8 g/dl (31.0-35.0); Mean Corpuscular Hemoglobin 30.5 pg (27.0-33.0); Mean Corpuscular Volume 90.3 fL (80.0-98.0); Mean Platelet Volume 10.6 fL (9.4-12.3); Monocytes Absolute Auto 1.2 X10*3/uL (0.1-1.2); Monocytes Percent Auto 8.3 % (2-11); Neutrophils Absolute Auto 9.6 x10*3/uL (2.0-8.3); Neutrophils Percent Auto 68.1 % (45-73); Platelet Count 256 X10*3/uL (160-400); Red Blood Count 4.55 X10*6/uL (4.20-5.50); Red Cell Distribution Width 12.6 % (11.0-16.0); White Blood Count 14.1 X10*3/uL (4.8-10.8)
[2022-03-31 06:39] LABS: PTT Heparin Drip 24.9 SEC (53-77.9)
[2022-03-31 06:49] LABS: Alanine Aminotransferase 26 U/L (0-31); Albumin Level 3.9 g/dL (3.5-5.0); Alkaline Phosphatase 63 U/L (39-117); Anion Gap 16 (12-20); Aspartate Amino Transferase 26 U/L (5-31); Bilirubin Total 0.8 mg/dL (0.0-1.0); Blood Urea Nitrogen 17 mg/dL (9-16); Calcium 7.8 mg/dL (8.4-10.2); Carbon Dioxide 25 mmol/L (22-29); Chloride 100 mmol/L (96-108); Creatinine Clr Calc Pharmacy 67.7; Estimated Glomerular Filt Rate > 60; Glucose Fasting 119 mg/dL (60-99); Potassium 3.8 mmol/L (3.3-5.1); Sodium 137 mmol/L (135-145); Total Protein 6.2 g/dL (6.5-8.0)
[2022-03-31] MEDS: Clopidogrel Bisulfate 75 MG TABLET PO (08:57)
[2022-03-31] MEDS: 0.9 % Sodium Chloride Flush 3 ML SYRINGE IVFLUSH ×3 (08:57→20:03)
[2022-03-31] MEDS: Escitalopram Oxalate 20 MG TABLET PO (08:57)
[2022-03-31] MEDS: Spironolactone 25 MG TABLET 50 MG PO (08:57)
[2022-03-31] MEDS: ARIPiprazole 15 MG TABLET PO (08:58)
[2022-03-31] MEDS: Furosemide 20 MG TABLET PO (08:58)
[2022-03-31] MEDS: VerapamiL HCL 40 MG TABLET PO ×3 (08:58→20:01)
[2022-03-31] MEDS: Atorvastatin Calcium 80 MG TABLET PO (08:58)
[2022-03-31] MEDS: guaiFENesin DM 100/10/5 ML 5 ML SYRUP 10 ML PO ×3 (08:59→20:01)
--- NOTE | 2022-03-31 12:27 | HO.PM.IMPN ---
Subjective Subjective Date of Service: 03/31/22 Interval History: States only minimal improvement; no further chest pain Review of Systems Admits shortness of breath at rest Denies chest pain Denies nausea vomiting diarrhea Denies fever chills Physical Exam Vital Signs: Vital Signs: Last Vital Signs Temp 97.4 F 03/31/22 11:31 Pulse 91 03/31/22 11:31 Resp 20 03/31/22 11:31 BP 139/60 03/31/22 11:31 Pulse Ox 94 03/31/22 11:31 O2 Del Method 03/31/22 11:31 O2 Flow Rate 3 03/31/22 11:31 BMI result Body Mass Index 36.8 Const: Other: Awake alert oriented x3 able speak in full sentences Resp: Other: Improved aeration to bases; scattered expiratory wheezes with coarse rhonchi that clear with cough Cardio: Other: No S4; positive S1-S2; no S3 murmurs rubs or gallops GI: Other: Soft nontender nondistended normoactive bowel sounds Extrem: Other: No edema bilaterally Objective Data Active Medications Acetaminophen (Acetaminophen 325 Mg Tablet) 650 mg PO Q6H PRN PRN Reason: Pain, Mild (Pain Scale 1-3) Last Admin: 03/27/22 11:14 Dose: 650 mg Documented By: RODERICK Albuterol Sulfate (Albuterol Sulfate 90 Mcg 8 Gm Inhaler) 2 puff INHALE Q4H PRN PRN Reason: wheezing Albuterol/Ipratropium (Albuterol/Iprat 2.5/0.5mg 3 Ml Ampul.Neb) 3 ml INHALE RQ4H PRN PRN Reason: Shortness of Breath/Wheezing Aripiprazole (Aripiprazole 15 Mg Tablet) 15 mg PO DAILY [facility] Last Admin: 03/31/22 08:58 Dose: 15 mg Documented By: BARBARA Atorvastatin Calcium (Atorvastatin Calcium 80 Mg Tablet) 80 mg PO DAILY [facility] Last Admin: 03/31/22 08:58 Dose: 80 mg Documented By: BARBARA Benzonatate (Benzonatate 100 Mg Capsule) 100 mg PO TID PRN PRN Reason: Cough Last Admin: 03/30/22 21:47 Dose: 100 mg Documented By: MINH Comments: barcode ripped Benztropine Mesylate (Benztropine Mesylate 0.5 Mg Tablet) 0.5 mg PO BEDTIME [facility] Last Admin: 03/30/22 20:12 Dose: 0.5 mg Documented By: MINH Clopidogrel Bisulfate (Clopidogrel Bisulfate 75 Mg Tablet) 75 mg PO DAILY [facility] Last Admin: 03/31/22 08:57 Dose: 75 mg Documented By: BARBARA Escitalopram Oxalate (Escitalopram Oxalate 20 Mg Tablet) 20 mg PO DAILY [facility] Last Admin: 03/31/22 08:57 Dose: 20 mg Documented By: BARBARA Furosemide (Furosemide 20 Mg Tablet) 20 mg PO DAILY [facility]; Protocol Last Admin: 03/31/22 08:58 Dose: 20 mg Documented By: BARBARA Guaifenesin/Dextromethorphan (Guaifenesin Dm 100/10/5 Ml 5 Ml Syrup) 10 ml PO TID [facility] Last Admin: 03/31/22 08:59 Dose: 10 ml Documented By: BARBARA Azithromycin 500 mg/ Sodium (Chloride) 250 mls @ 125 mls/hr IV Q24H [facility] Last Infusion: 03/30/22 17:09 Dose: 0 mls/hr Documented By: RAFAT Latanoprost (Latanoprost 0.005 % Ophth Deborah 2.5 Ml Drops) 1 drop EYE-BOTH BEDTIME [facility] Last Admin: 03/30/22 20:15 Dose: 1 drop Documented By: MINH Levalbuterol HCl (Levalbuterol Hcl 1.25 Mg/0.5 Ml Vial.Neb) 1.25 mg INHALE RQ4H WHILE AWAKE [facility] Last Admin: 03/31/22 11:15 Dose: 1.25 mg Documented By: AUGIE Melatonin (Melatonin 3 Mg Tablet) 3 mg PO BEDTIME PRN PRN Reason: Insomnia Ondansetron HCl (Ondansetron Hcl 4 Mg/2 Ml Vial) 4 mg IVPUSH Q8H PRN PRN Reason: Nausea and Vomiting Last Admin: 03/30/22 09:18 Dose: 4 mg Documented By: RAFAT Pharmacy Consult (Consult Rx Perform Med Rec) 1 each MISCELLANE ONCE PRN PRN Reason: Consult order Prednisone (Prednisone 10 Mg Tablet) 50 mg PO DAILY [facility] Sodium Chloride (0.9 % Sodium Chloride Flush 3 Ml Syringe) 3 ml IVFLUSH QSHIFT [facility] Last Admin: 03/31/22 08:57 Dose: 3 ml Documented By: BARBARA Spironolactone (Spironolactone 25 Mg Tablet) 50 mg PO DAILY [facility]; Protocol Last Admin: 03/31/22 08:57 Dose: 50 mg Documented By: BARBARA Trazodone HCl (Trazodone Hcl 50 Mg Tablet) 50 mg PO BEDTIME PRN PRN Reason: insomnia Last Admin: 03/30/22 20:15 Dose: 50 mg Documented By: MINH Verapamil HCl (Verapamil Hcl 40 Mg Tablet) 40 mg PO TID [facility]; Protocol Last Admin: 03/31/22 08:58 Dose: 40 mg Documented By: BARBARA Labs CBC & Chem 7: 03/31/22 05:58 03/31/22 05:57 Labs: Laboratory Results - last 24 hr 03/31/22 03/31/22 03/31/22 05:57 05:57 05:58 MCV 89.4 MCH 30.3 MCHC 33.9 RDW 12.7 Plt Count 257 MPV 10.3 Immature Gran % (Auto) Neut % (Auto) Lymph % (Auto) [place] % (Auto) Eos % (Auto) Baso % (Auto) Lymph # (Auto) [place] # (Auto) Eos # (Auto) Baso # (Auto) Abs Immat Gran (auto) Absolute Neuts (auto) Absolute Nucleated RBC 0.000 Nucleated RBC % (auto) 0.0 aPTT Heparin Protocol 24.9 L D Anion Gap 16 Estim Creat Clear Calc 67.7 Estimated GFR > 60 Fasting Glucose 119 H Calcium 7.8 L Total Bilirubin 0.8 AST 26 ALT 26 Alkaline Phosphatase 63 Total Protein 6.2 L Albumin 3.9 03/31/22 05:58 MCV 90.3 MCH 30.5 MCHC 33.8 RDW 12.6 Plt Count 256 MPV 10.6 Immature Gran % (Auto) 0.9 H Neut % (Auto) 68.1 Lymph % (Auto) 21.7 [place] % (Auto) 8.3 Eos % (Auto) 0.9 Baso % (Auto) 0.1 Lymph # (Auto) 3.1 [place] # (Auto) 1.2 Eos # (Auto) 0.1 Baso # (Auto) 0.0 Abs Immat Gran (auto) 0.12 H Absolute Neuts (auto) 9.6 H Absolute Nucleated RBC 0.000 Nucleated RBC % (auto) 0.0 aPTT Heparin Protocol Anion Gap Estim Creat Clear Calc Estimated GFR Fasting Glucose Calcium Total Bilirubin AST ALT Alkaline Phosphatase Total Protein Albumin Assessment and Plan (1) Acute non-ST elevation myocardial infarction (NSTEMI): Status: Acute (2) Asthma with exacerbation: Status: Acute (3) Hypertension: Status: Acute Plan 71-year-old female patient with past medical history significant for asthma, hypertension, history of bloody diarrhea with aspirin, unknown allergy to Cardizem presented to [facility] with 2-3 days history of dry cough associated with shortness of breath not responding to home inhalers, in the ER patient workup showed a normal chest x-ray, elevated troponin normal BNP, normal electrolyte and CBC, EKG showed no acute ischemia? on examination patient noted to have bilateral expiratory wheeze suggestive of acute asthma exacerbation likely contributing to non ST-elevation CO. 1.NSTEMI type B due -lipitor/Plavix? -echo with hyperdynamic EF; no wall motion abnormality -declines cardiac catheterization 2.Acute asthma exacerbation -prednisone 50 mg daily -q.4 hours open next while awake -titrate O2 -pulmonary consult 3.Hypertension -acceptable control on current therapies -adjust as indicated ? ?Full code Heparin ?Will require ongoing hospitalization for IV heparin and treatment of asthma exacerbation with IV steroids Quality Stroke Does the patient have a stroke diagnosis?: No VTE Prior VTE?: No VTE Risk Level:: Medical - moderate - high VTE Device Contraindication: Treatment Not Indicated VTE Drug Contraindication: N/A - Med Ordered
--- NOTE | 2022-03-31 13:54 | PM.CNPUL ---
History of Present Illness History of Present Illness Consult date: 03/31/22 Chief complaint: sob Narrative: This is an inpatient pulmonary consultation. The patient is a 71-year-old female patient with past medical history significant for hypertension, asthma, TIA in 2019 presented to [facility] due to shortness of breath of 2 days duration associated with dry cough for few days duration patient took her home inhalers with no significant improvement last night patient woke up with? worsening shortness of breath therefore called ambulance, paramedics noted bilateral wheeze she required treatment with DuoNeb nebulizer EN route in the ED patient was noted to be tachypneic tachycardic lung exam revealed diffuse wheezing and rhonchi patient treated with albuterol nebulizer, IV steroids , influenza and COVID test was negative chest x-ray showed no acute infiltrate, BNP was 31, initial troponin was 25 that jump to 240, EKG showed no acute ischemic changes patient denies chest pain, no palpitation patient denies associated nausea vomiting abdominal pain no diaphoresis, no lightheadedness, no dizziness, denies fever chills patient is now being admitted to [facility] with asthma exacerbation likely causing ? secondary AL on arrival patient oxygenation was 89% on room air. The patient was treated for non ST elevation AL likely demand. She is on cardioprotective medications. The patient was recommended to go to [facility] for a cardiac catheterization. But the patient does not want to at this time. In the meantime she continued to have respiratory complaints chest congestion and cough. She has been on the prednisone and also been on azithromycin. She is coughing actively 1 am evaluating her. It appears to be consistent with a tracheal cough suggesting tracheomalacia. Review of Systems Review of Systems: Yes all other systems are reviewed and are negative Constitutional: Constitutional: Reports as per HPI Eyes: Eyes: Reports as per HPI ENT: Reports as per HPI Cardiovascular: Cardiovascular: Reports as per HPI, Denies acrocyanosis, Denies cool extremities, Denies chest pain, Denies leg edema, Denies lightheadedness, Denies palpitations and Denies dyspnea Respiratory: Respiratory: Reports chest congestion, Reports cough, Denies hemoptysis, Denies dyspnea and Reports wheezing Gastrointestinal: Gastrointestinal: Reports as per HPI and Reports no additional gastrointestinal complaints Musculoskeletal: Musculoskeletal: Reports no additional musculoskeletal complaints and Reports as per HPI Integumentary/Breasts: Skin/Breast: Reports system reviewed and no additional complaints, except as docu Neurologic: Reports system reviewed and no additional complaints, except as documented and Reports as per HPI Psychiatric: Psychiatric: Reports no additional psychiatric complaints and Reports as per HPI Endocrine: Endocrine: Reports no additional endocrine complaints, Reports as per HPI and Denies palpitations Hematologic/Lymphatic: Hematologic/Lymphatic: Reports no additional hematologic/lymphatic complaints and Reports as per HPI Allergic/Immunologic: Allergic/Immunologic: Reports no additional allergic/immunologic complaints, Reports as per HPI and Reports wheezing PMFSH Past Medical History Medical History (Updated 03/31/22 @ 13:57 by Emory Ladd MD) Asthma Chronic cough Hypertension TIA (transient ischemic attack) Family History Family History (Updated 03/27/22 @ 10:25 by Justino Brar MD) Maternal Uncle Myocardial infarction Social History Social History Household Members: Spouse and Children Housing: House Do you presently have visiting nurse or other home services: No Patient Tobacco Use Status: Never used Tobacco Smoked in Last 30 Days: No Use of substances other than those prescribed or required for medical reasons: No Currently Displaying Signs/Symptoms of Drug Intoxication Withdrawal: No Have you been hit, kicked, punched, or otherwise hurt by someone within the past year? If so, by whom?: No Do you feel safe in your current relationship?: Yes Is there a partner from a previous relationship who is making you feel unsafe now?: No Are you made to feel afraid or neglected: No Advance Directives: No Advance Directives Information Provided: No Do you have thoughts of harming others: None Do you have a plan to hurt others: No Plan Recently lost weight without trying: No Nutrition Risks: No Nutritional Risk Patient : No service: No Meds Allergies Allergy/AdvReac Type Severity Reaction Status Date / Time diltiazem [From CARDIZEM] Allergy Unknown UNKNOWN Verified 03/28/22 09:26 oxycodone [From PERCOCET] AdvReac Severe HALLUCINATI Verified 03/28/22 09:26 ONS aspirin [ASPIRIN] AdvReac Intermediate BLOODY Verified 03/28/22 09:26 DIARRHEA Active Medications: Current Medications Acetaminophen (Acetaminophen 325 Mg Tablet) 650 mg PO Q6H PRN PRN Reason: Pain, Mild (Pain Scale 1-3) Last Admin: 03/27/22 11:14 Dose: 650 mg Albuterol Sulfate (Albuterol Sulfate 90 Mcg 8 Gm Inhaler) 2 puff INHALE Q4H PRN PRN Reason: wheezing Albuterol/Ipratropium (Albuterol/Iprat 2.5/0.5mg 3 Ml Ampul.Neb) 3 ml INHALE RQ4H PRN PRN Reason: Shortness of Breath/Wheezing Aripiprazole (Aripiprazole 15 Mg Tablet) 15 mg PO DAILY [facility] Last Admin: 03/31/22 08:58 Dose: 15 mg Atorvastatin Calcium (Atorvastatin Calcium 80 Mg Tablet) 80 mg PO DAILY [facility] Last Admin: 03/31/22 08:58 Dose: 80 mg Benzonatate (Benzonatate 100 Mg Capsule) 100 mg PO TID PRN PRN Reason: Cough Last Admin: 03/30/22 21:47 Dose: 100 mg Benztropine Mesylate (Benztropine Mesylate 0.5 Mg Tablet) 0.5 mg PO BEDTIME [facility] Last Admin: 03/30/22 20:12 Dose: 0.5 mg Clopidogrel Bisulfate (Clopidogrel Bisulfate 75 Mg Tablet) 75 mg PO DAILY [facility] Last Admin: 03/31/22 08:57 Dose: 75 mg Escitalopram Oxalate (Escitalopram Oxalate 20 Mg Tablet) 20 mg PO DAILY [facility] Last Admin: 03/31/22 08:57 Dose: 20 mg Furosemide (Furosemide 20 Mg Tablet) 20 mg PO DAILY [facility]; Protocol Last Admin: 03/31/22 08:58 Dose: 20 mg Guaifenesin/Dextromethorphan (Guaifenesin Dm 100/10/5 Ml 5 Ml Syrup) 10 ml PO TID [facility] Last Admin: 03/31/22 08:59 Dose: 10 ml Azithromycin 500 mg/ Sodium (Chloride) 250 mls @ 125 mls/hr IV Q24H [facility] Last Infusion: 03/30/22 17:09 Dose: Infused Latanoprost (Latanoprost 0.005 % Ophth Deborah 2.5 Ml Drops) 1 drop EYE-BOTH BEDTIME [facility] Last Admin: 03/30/22 20:15 Dose: 1 drop Levalbuterol HCl (Levalbuterol Hcl 1.25 Mg/0.5 Ml Vial.Neb) 1.25 mg INHALE RQ4H WHILE AWAKE [facility] Last Admin: 03/31/22 11:15 Dose: 1.25 mg Melatonin (Melatonin 3 Mg Tablet) 3 mg PO BEDTIME PRN PRN Reason: Insomnia Ondansetron HCl (Ondansetron Hcl 4 Mg/2 Ml Vial) 4 mg IVPUSH Q8H PRN PRN Reason: Nausea and Vomiting Last Admin: 03/30/22 09:18 Dose: 4 mg Pharmacy Consult (Consult Rx Perform Med Rec) 1 each MISCELLANE ONCE PRN PRN Reason: Consult order Prednisone (Prednisone 10 Mg Tablet) 50 mg PO DAILY [facility] Sodium Chloride (0.9 % Sodium Chloride Flush 3 Ml Syringe) 3 ml IVFLUSH QSHIFT [facility] Last Admin: 03/31/22 08:57 Dose: 3 ml Spironolactone (Spironolactone 25 Mg Tablet) 50 mg PO DAILY [facility]; Protocol Last Admin: 03/31/22 08:57 Dose: 50 mg Trazodone HCl (Trazodone Hcl 50 Mg Tablet) 50 mg PO BEDTIME PRN PRN Reason: insomnia Last Admin: 03/30/22 20:15 Dose: 50 mg Verapamil HCl (Verapamil Hcl 40 Mg Tablet) 40 mg PO TID [facility]; Protocol Last Admin: 03/31/22 08:58 Dose: 40 mg Home Medications Medication Instructions Recorded Confirmed Last Taken Type Saccharomyces boulardii 250 mg 1 cap PO BID 03/26/22 03/26/22 03/25/22 History capsule (Probiotic (S.boulardii)) albuterol sulfate 90 mcg/actuation 2 puff inhalation Q4H PRN wheezing 03/26/22 03/26/22 Unknown History aerosol inhaler alendronate 70 mg tablet 1 tab PO LOPEZ@0900 03/26/22 03/26/22 03/26/22 History aripiprazole 15 mg tablet 1 tab PO DAILY 03/26/22 03/26/22 03/25/22 History benztropine 1 mg tablet 0.5 tab PO BEDTIME 03/26/22 03/26/22 03/25/22 History cholecalciferol (vitamin D3) 25 1 cap PO DAILY 03/26/22 03/26/22 03/25/22 History mcg (1,000 unit) capsule (Vitamin D3) clopidogrel 75 mg tablet 1 tab PO DAILY 03/26/22 03/26/22 03/25/22 History escitalopram oxalate 20 mg tablet 1 tab PO DAILY 03/26/22 03/26/22 03/25/22 History furosemide 20 mg tablet 1 tab PO DAILY 03/26/22 03/26/22 03/25/22 History ibuprofen 125 mg-acetaminophen 250 2 tab PO BID pain 03/26/22 03/26/22 03/25/22 History mg tablet (Advil Dual Action) latanoprost 0.005 % eye drops 1 drp ophthalmic (eye) BEDTIME 03/26/22 03/26/22 03/25/22 History rosuvastatin 5 mg tablet 1 tab PO DAILY 03/26/22 03/26/22 03/25/22 History spironolactone 50 mg tablet 1 tab PO DAILY 03/26/22 03/26/22 03/25/22 History trazodone 50 mg tablet 1 tab PO BEDTIME PRN insomnia 03/26/22 03/26/22 03/25/22 History Physical Exam Vital Signs: Vital Signs: Last Vital Signs Temp 97.4 F 03/31/22 11:31 Pulse 91 03/31/22 11:31 Resp 20 03/31/22 11:31 BP 139/60 03/31/22 11:31 Pulse Ox 94 03/31/22 11:31 O2 Del Method 03/31/22 11:31 O2 Flow Rate 3 03/31/22 11:31 BMI result Body Mass Index 36.8 Const: General: comfortable and no acute distress Orientation/consciousness: patient oriented x3 HEENT: Other: Unremarkable Head: Yes normal to inspection Neck: Neck: Yes normal visual inspection Chest: Chest palpation & inspection: normal inspection of the chest Resp: Effort & Inspection: Actively coughing Quality: productive Auscultation: rhonchi, wheezes and diminished lung sounds Cardio: Palpation: normal PMI Heart sounds: S1 normal heart sound present, S2 normal heart sound present, no gallops, no murmurs and no rubs GI: Palpation (GI): Soft to palpation Back/Spine/Pelvis: Other: unremarkable Skin: General skin exam: no rashes or lesions noted Neuro: General: patient oriented x3 Extrem: General: Yes normal to inspection Psych: Mental Status: mental status grossly normal Results Laboratory Findings CBC and BMP: 03/31/22 05:58 03/31/22 05:57 ABG, PT/INR, D-dimer: PT/INR, D-dimer PT 11.2 SEC (10.0-13.1) 03/27/22 08:30 INR 1.0 (0.9-1.1) 03/27/22 08:30 Abnormal lab findings: Abnormal Labs 03/26/22 03/26/22 03/26/22 07:33 07:33 07:33 WBC 12.5 H Immature Gran % (Auto) 0.5 H Eos # (Auto) 0.5 H Abs Immat Gran (auto) 0.06 H Absolute Neuts (auto) 8.8 H aPTT Heparin Protocol BUN Random Glucose 226 H Fasting Glucose Calcium Troponin I High Sens 25.3 H Total Protein 03/26/22 03/27/22 03/27/22 10:55 08:30 08:30 WBC 21.6 H Immature Gran % (Auto) Eos # (Auto) Abs Immat Gran (auto) Absolute Neuts (auto) aPTT Heparin Protocol 51.2 L BUN Random Glucose Fasting Glucose Calcium Troponin I High Sens 240.0 H* D Total Protein 03/27/22 03/27/22 03/27/22 08:30 15:16 22:02 WBC Immature Gran % (Auto) Eos # (Auto) Abs Immat Gran (auto) Absolute Neuts (auto) aPTT Heparin Protocol 102.4 H D 43.0 L D BUN Random Glucose Fasting Glucose Calcium Troponin I High Sens 743.3 H* Total Protein 03/28/22 03/28/22 03/29/22 15:03 22:20 09:28 WBC Immature Gran % (Auto) Eos # (Auto) Abs Immat Gran (auto) Absolute Neuts (auto) aPTT Heparin Protocol 40.0 L D 89.9 H D BUN Random Glucose Fasting Glucose Calcium Troponin I High Sens 87.5 H* D Total Protein 03/29/22 03/29/22 03/29/22 13:12 13:12 20:09 WBC Immature Gran % (Auto) Eos # (Auto) Abs Immat Gran (auto) Absolute Neuts (auto) aPTT Heparin Protocol 46.8 L D 92.4 H D BUN Random Glucose Fasting Glucose Calcium Troponin I High Sens 82.9 H* D Total Protein 03/30/22 03/31/22 03/31/22 06:03 05:57 05:57 WBC Immature Gran % (Auto) Eos # (Auto) Abs Immat Gran (auto) Absolute Neuts (auto) aPTT Heparin Protocol 24.9 L D BUN 22 H 17 H Random Glucose Fasting Glucose 136 H 119 H Calcium 8.2 L D 7.8 L Troponin I High Sens Total Protein 6.2 L 03/31/22 03/31/22 05:58 05:58 WBC 14.3 H 14.1 H Immature Gran % (Auto) 0.9 H Eos # (Auto) Abs Immat Gran (auto) 0.12 H Absolute Neuts (auto) 9.6 H aPTT Heparin Protocol BUN Random Glucose Fasting Glucose Calcium Troponin I High Sens Total Protein Assessment and Plan (1) Asthma with exacerbation: Status: Acute (2) Chronic cough: Status: Acute (3) Acute non-ST elevation myocardial infarction (NSTEMI): Status: Acute (4) Tracheobronchitis: Status: Acute Plan Stop Azithromycin Start Levaquin Start CPT with flutter valve QID Nebs bloodwork repeat CXR Continue cardioprotective medications Procedures Date of Service Date of Service: 03/31/22
[2022-03-31] MEDS: levoFLOXacin 500 MG TABLET PO (15:14)
[2022-03-31] MEDS: Benztropine Mesylate 0.5 MG TABLET PO (20:01)
[2022-03-31] MEDS: traZODone HCL 50 MG TABLET PO (20:01)
[2022-03-31] MEDS: Latanoprost 0.005 % Ophth Sol 2.5 ML DROPS 1 DROP EYE-BOTH (20:05)
[2022-04-01] VITALS (9 sets, daily range): BP systolic 145–187; BP diastolic 62–82; PULSE 80–136; RESP 16–22; TEMP 36.2–37.3; O2SAT 92–99
[2022-04-01 06:45] LABS: MANUAL DIFF FLAG NO
[2022-04-01 06:52] LABS: Basophils Percent Auto 0.2 % (0-2); Eosinophils Absolute Auto 0.6 X10*3/uL (0.0-0.4); Eosinophils Percent Auto 3.5 % (0-4); Hematocrit 42.1 % (37.0-47.0); Hemoglobin 14.4 g/dl (12.0-16.0); Imm Gran Pct Auto 0.6 % (0.0-0.4); Lymphocytes Absolute Auto 2.6 X10*3/uL (1.2-4.9); Lymphocytes Percent Auto 15.7 % (20-40); Mean Corpuscular HGB Conc 34.2 g/dl (31.0-35.0); Mean Corpuscular Hemoglobin 30.9 pg (27.0-33.0); Mean Corpuscular Volume 90.3 fL (80.0-98.0); Mean Platelet Volume 10.8 fL (9.4-12.3); Monocytes Absolute Auto 1.2 X10*3/uL (0.1-1.2); Monocytes Percent Auto 7.1 % (2-11); Neutrophils Absolute Auto 12.2 x10*3/uL (2.0-8.3); Neutrophils Percent Auto 72.9 % (45-73); Platelet Count 251 X10*3/uL (160-400); Red Blood Count 4.66 X10*6/uL (4.20-5.50); Red Cell Distribution Width 12.6 % (11.0-16.0); White Blood Count 16.7 X10*3/uL (4.8-10.8)
[2022-04-01 07:16] LABS: Alanine Aminotransferase 25 U/L (0-31); Albumin Level 3.7 g/dL (3.5-5.0); Alkaline Phosphatase 66 U/L (39-117); Anion Gap 16 (12-20); Aspartate Amino Transferase 24 U/L (5-31); Bilirubin Total 0.9 mg/dL (0.0-1.0); Blood Urea Nitrogen 15 mg/dL (9-16); Calcium 7.9 mg/dL (8.4-10.2); Carbon Dioxide 24 mmol/L (22-29); Chloride 99 mmol/L (96-108); Creatinine Clr Calc Pharmacy 76.6; Estimated Glomerular Filt Rate > 60; Glucose Fasting 128 mg/dL (60-99); Potassium 3.8 mmol/L (3.3-5.1); Sodium 135 mmol/L (135-145); Total Protein 6.4 g/dL (6.5-8.0)
[2022-04-01] MEDS: VerapamiL HCL 40 MG TABLET PO ×3 (08:11→20:07)
[2022-04-01] MEDS: Furosemide 20 MG TABLET PO (08:11)
[2022-04-01] MEDS: Spironolactone 25 MG TABLET 50 MG PO (08:11)
[2022-04-01] MEDS: guaiFENesin DM 100/10/5 ML 5 ML SYRUP 10 ML PO ×3 (08:11→20:07)
[2022-04-01] MEDS: Clopidogrel Bisulfate 75 MG TABLET PO (08:11)
[2022-04-01] MEDS: Atorvastatin Calcium 80 MG TABLET PO (08:11)
[2022-04-01] MEDS: Escitalopram Oxalate 20 MG TABLET PO (08:11)
[2022-04-01] MEDS: predniSONE 10 MG TABLET 50 MG PO (08:12)
[2022-04-01] MEDS: Acetaminophen 325 MG TABLET 650 MG PO (08:12)
[2022-04-01] MEDS: ARIPiprazole 15 MG TABLET PO (09:03)
--- NOTE | 2022-04-01 10:34 | PC.NURSE ---
Pt's BP was elevated this AM, morning meds administered and BP was rechecked, MD informed of recheck. per md no new orders at this time. pt encouraged to get OOB and ambulate or move to the chair, pt stated she will call when she is ready
[2022-04-01] MEDS: levoFLOXacin 500 MG TABLET PO (14:04)
--- NOTE | 2022-04-01 14:28 | HO.PM.IMPN ---
Subjective Subjective Date of Service: 04/01/22 Interval History: Minimal improvement overall Review of Systems Admits shortness of breath at rest Denies chest pain Denies nausea vomiting diarrhea Denies fever chills Physical Exam Vital Signs: Vital Signs: Last Vital Signs Temp 98.4 F 04/01/22 11:50 Pulse 102 H 04/01/22 12:07 Resp 16 04/01/22 12:07 BP 145/72 H 04/01/22 11:50 Pulse Ox 92 04/01/22 11:50 O2 Del Method 04/01/22 11:50 O2 Flow Rate 1 04/01/22 11:50 BMI result Body Mass Index 36.8 Const: Other: Awake alert oriented x3 able speak in full sentences Resp: Other: Improved aeration to bases; scattered expiratory wheezes with coarse rhonchi that clear with cough Cardio: Other: No S4; positive S1-S2; no S3 murmurs rubs or gallops GI: Other: Soft nontender nondistended normoactive bowel sounds Extrem: Other: No edema bilaterally Objective Data Active Medications Acetaminophen (Acetaminophen 325 Mg Tablet) 650 mg PO Q6H PRN PRN Reason: Pain, Mild (Pain Scale 1-3) Last Admin: 04/01/22 08:12 Dose: 650 mg Documented By: АННА Albuterol Sulfate (Albuterol Sulfate 90 Mcg 8 Gm Inhaler) 2 puff INHALE Q4H PRN PRN Reason: wheezing Albuterol/Ipratropium (Albuterol/Iprat 2.5/0.5mg 3 Ml Ampul.Neb) 3 ml INHALE RQ4H PRN PRN Reason: Shortness of Breath/Wheezing Aripiprazole (Aripiprazole 15 Mg Tablet) 15 mg PO DAILY [facility] Last Admin: 04/01/22 09:03 Dose: 15 mg Documented By: АННА Atorvastatin Calcium (Atorvastatin Calcium 80 Mg Tablet) 80 mg PO DAILY [facility] Last Admin: 04/01/22 08:11 Dose: 80 mg Documented By: АННА Benzonatate (Benzonatate 100 Mg Capsule) 100 mg PO TID PRN PRN Reason: Cough Last Admin: 03/30/22 21:47 Dose: 100 mg Documented By: MINH Comments: barcode ripped Benztropine Mesylate (Benztropine Mesylate 0.5 Mg Tablet) 0.5 mg PO BEDTIME [facility] Last Admin: 03/31/22 20:01 Dose: 0.5 mg Documented By: MINH Clopidogrel Bisulfate (Clopidogrel Bisulfate 75 Mg Tablet) 75 mg PO DAILY [facility] Last Admin: 04/01/22 08:11 Dose: 75 mg Documented By: АННА Escitalopram Oxalate (Escitalopram Oxalate 20 Mg Tablet) 20 mg PO DAILY [facility] Last Admin: 04/01/22 08:11 Dose: 20 mg Documented By: АННА Furosemide (Furosemide 20 Mg Tablet) 20 mg PO DAILY [facility]; Protocol Last Admin: 04/01/22 08:11 Dose: 20 mg Documented By: АННА Guaifenesin/Dextromethorphan (Guaifenesin Dm 100/10/5 Ml 5 Ml Syrup) 10 ml PO TID [facility] Last Admin: 04/01/22 14:04 Dose: 10 ml Documented By: GATO Latanoprost (Latanoprost 0.005 % Ophth Deborah 2.5 Ml Drops) 1 drop EYE-BOTH BEDTIME [facility] Last Admin: 03/31/22 20:05 Dose: 1 drop Documented By: MINH Levalbuterol HCl (Levalbuterol Hcl 1.25 Mg/0.5 Ml Vial.Neb) 1.25 mg INHALE RQ4H WHILE AWAKE [facility] Last Admin: 04/01/22 12:07 Dose: 1.25 mg Documented By: MARY Levofloxacin (Levofloxacin 500 Mg Tablet) 500 mg PO Q24H [facility] Last Admin: 04/01/22 14:04 Dose: 500 mg Documented By: GATO Melatonin (Melatonin 3 Mg Tablet) 3 mg PO BEDTIME PRN PRN Reason: Insomnia Ondansetron HCl (Ondansetron Hcl 4 Mg/2 Ml Vial) 4 mg IVPUSH Q8H PRN PRN Reason: Nausea and Vomiting Last Admin: 03/30/22 09:18 Dose: 4 mg Documented By: RAFAT Pharmacy Consult (Consult Rx Perform Med Rec) 1 each MISCELLANE ONCE PRN PRN Reason: Consult order Prednisone (Prednisone 10 Mg Tablet) 50 mg PO DAILY [facility] Last Admin: 04/01/22 08:12 Dose: 50 mg Documented By: HO.N-SOFFA Sodium Chloride (0.9 % Sodium Chloride Flush 3 Ml Syringe) 3 ml IVFLUSH QSHIFT [facility] Last Admin: 04/01/22 07:30 Dose: Not Given Documented By: SAUL-SOFFA Non-Admin Reason: See Note Spironolactone (Spironolactone 25 Mg Tablet) 50 mg PO DAILY [facility]; Protocol Last Admin: 04/01/22 08:11 Dose: 50 mg Documented By: SAUL-SOFPEYTON Trazodone HCl (Trazodone Hcl 50 Mg Tablet) 50 mg PO BEDTIME PRN PRN Reason: insomnia Last Admin: 03/31/22 20:01 Dose: 50 mg Documented By: MINH Verapamil HCl (Verapamil Hcl 40 Mg Tablet) 40 mg PO TID [facility]; Protocol Last Admin: 04/01/22 14:04 Dose: 40 mg Documented By: GATO Labs CBC & Chem 7: 04/01/22 06:20 04/01/22 06:20 Labs: Laboratory Results - last 24 hr 04/01/22 04/01/22 06:20 06:20 MCV 90.3 MCH 30.9 MCHC 34.2 RDW 12.6 Plt Count 251 MPV 10.8 Immature Gran % (Auto) 0.6 H Neut % (Auto) 72.9 Lymph % (Auto) 15.7 L [place] % (Auto) 7.1 Eos % (Auto) 3.5 Baso % (Auto) 0.2 Lymph # (Auto) 2.6 [place] # (Auto) 1.2 Eos # (Auto) 0.6 H Baso # (Auto) 0.0 Abs Immat Gran (auto) 0.10 H Absolute Neuts (auto) 12.2 H Absolute Nucleated RBC 0.000 Nucleated RBC % (auto) 0.0 Anion Gap 16 Estim Creat Clear Calc 76.6 Estimated GFR > 60 Fasting Glucose 128 H Calcium 7.9 L Total Bilirubin 0.9 AST 24 ALT 25 Alkaline Phosphatase 66 Total Protein 6.4 L Albumin 3.7 Assessment and Plan (1) Acute non-ST elevation myocardial infarction (NSTEMI): Status: Acute (2) Asthma with exacerbation: Status: Acute Plan 71-year-old female patient with past medical history significant for asthma, hypertension, history of bloody diarrhea with aspirin, unknown allergy to Cardizem presented to [facility] with 2-3 days history of dry cough associated with shortness of breath not responding to home inhalers, in the ER patient workup showed a normal chest x-ray, elevated troponin normal BNP, normal electrolyte and CBC, EKG showed no acute ischemia? on examination patient noted to have bilateral expiratory wheeze suggestive of acute asthma exacerbation likely contributing to non ST-elevation [place]. 1.NSTEMI type B due -lipitor/Plavix? -echo with hyperdynamic EF; no wall motion abnormality -declines cardiac catheterization 2.Acute asthma exacerbation -prednisone 50 mg daily -q.4 hours open next while awake -titrate O2 3.Hypertension -acceptable control on current therapies -adjust as indicated ? Full code Heparin ?Will require ongoing hospitalization for IV heparin and treatment of asthma exacerbation with IV steroids Quality Stroke Does the patient have a stroke diagnosis?: No VTE Prior VTE?: No VTE Risk Level:: Medical - moderate - high VTE Device Contraindication: Treatment Not Indicated VTE Drug Contraindication: N/A - Med Ordered
[2022-04-01] MEDS: 0.9 % Sodium Chloride Flush 3 ML SYRINGE IVFLUSH ×2 (16:29→20:07)
[2022-04-01] MEDS: Benztropine Mesylate 0.5 MG TABLET PO (20:07)
[2022-04-01] MEDS: traZODone HCL 50 MG TABLET PO (20:08)
[2022-04-01] MEDS: Latanoprost 0.005 % Ophth Sol 2.5 ML DROPS 1 DROP EYE-BOTH (20:08)
[2022-04-02] VITALS (9 sets, daily range): BP systolic 127–185; BP diastolic 65–82; PULSE 84–104; RESP 14–20; TEMP 36.1–37.5; O2SAT 88–97
[2022-04-02 06:40] LABS: MANUAL DIFF FLAG NO
[2022-04-02 06:47] LABS: Basophils Percent Auto 0.1 % (0-2); Eosinophils Absolute Auto 0.2 X10*3/uL (0.0-0.4); Eosinophils Percent Auto 0.8 % (0-4); Hematocrit 42.1 % (37.0-47.0); Hemoglobin 14.4 g/dl (12.0-16.0); Imm Gran Abs Auto 0.13 X10*3/uL (0.00-0.03); Imm Gran Pct Auto 0.6 % (0.0-0.4); Lymphocytes Absolute Auto 2.6 X10*3/uL (1.2-4.9); Lymphocytes Percent Auto 12.7 % (20-40); Mean Corpuscular HGB Conc 34.2 g/dl (31.0-35.0); Mean Corpuscular Hemoglobin 30.6 pg (27.0-33.0); Mean Corpuscular Volume 89.6 fL (80.0-98.0); Mean Platelet Volume 10.7 fL (9.4-12.3); Monocytes Absolute Auto 1.5 X10*3/uL (0.1-1.2); Monocytes Percent Auto 7.2 % (2-11); Neutrophils Absolute Auto 15.9 x10*3/uL (2.0-8.3); Neutrophils Percent Auto 78.6 % (45-73); Platelet Count 265 X10*3/uL (160-400); Red Cell Distribution Width 12.5 % (11.0-16.0); White Blood Count 20.3 X10*3/uL (4.8-10.8)
[2022-04-02] MEDS: guaiFENesin DM 100/10/5 ML 5 ML SYRUP 10 ML PO ×3 (10:26→19:53)
[2022-04-02] MEDS: predniSONE 10 MG TABLET 50 MG PO (10:31)
[2022-04-02] MEDS: Spironolactone 25 MG TABLET 50 MG PO (10:32)
[2022-04-02] MEDS: Atorvastatin Calcium 80 MG TABLET PO (10:32)
[2022-04-02] MEDS: ARIPiprazole 15 MG TABLET PO (10:32)
[2022-04-02] MEDS: Furosemide 20 MG TABLET PO (10:32)
[2022-04-02] MEDS: 0.9 % Sodium Chloride Flush 3 ML SYRINGE IVFLUSH ×2 (10:33→22:44)
[2022-04-02] MEDS: VerapamiL HCL 40 MG TABLET PO ×3 (10:33→19:54)
[2022-04-02] MEDS: Escitalopram Oxalate 20 MG TABLET PO (10:33)
[2022-04-02] MEDS: Clopidogrel Bisulfate 75 MG TABLET PO (10:33)
[2022-04-02] MEDS: levoFLOXacin 500 MG TABLET PO (13:29)
--- NOTE | 2022-04-02 14:25 | P.PNIM_ITS ---
Subjective Subjective Date of Service: 04/02/22 Interval History: Slow improvement overall. Still unsteady on feet Review of Systems Admits shortness of breath at rest Denies chest pain Denies nausea vomiting diarrhea Denies fever chills Physical Exam Vital Signs: Vital Signs: Last Vital Signs Temp 98.0 F 04/02/22 12:00 Pulse 96 04/02/22 12:00 Resp 20 04/02/22 12:00 BP 185/82 H 04/02/22 12:00 Pulse Ox 95 04/02/22 12:00 O2 Del Method 04/02/22 12:00 O2 Flow Rate 1 04/02/22 12:00 BMI result Body Mass Index 36.8 Const: Other: Awake alert oriented x3 able speak in full sentences Resp: Other: Improved aeration to bases; scattered expiratory wheezes with coarse rhonchi that clear with cough Cardio: Other: No S4; positive S1-S2; no S3 murmurs rubs or gallops GI: Other: Soft nontender nondistended normoactive bowel sounds Extrem: Other: No edema bilaterally Objective Data Active Medications Acetaminophen (Acetaminophen 325 Mg Tablet) 650 mg PO Q6H PRN PRN Reason: Pain, Mild (Pain Scale 1-3) Last Admin: 04/01/22 08:12 Dose: 650 mg Documented By: АННА Albuterol Sulfate (Albuterol Sulfate 90 Mcg 8 Gm Inhaler) 2 puff INHALE Q4H PRN PRN Reason: wheezing Albuterol/Ipratropium (Albuterol/Iprat 2.5/0.5mg 3 Ml Ampul.Neb) 3 ml INHALE RQ4H PRN PRN Reason: Shortness of Breath/Wheezing Aripiprazole (Aripiprazole 15 Mg Tablet) 15 mg PO DAILY [facility] Last Admin: 04/02/22 10:32 Dose: 15 mg Documented By: JEFF Atorvastatin Calcium (Atorvastatin Calcium 80 Mg Tablet) 80 mg PO DAILY [facility] Last Admin: 04/02/22 10:32 Dose: 80 mg Documented By: JEFF Benzonatate (Benzonatate 100 Mg Capsule) 100 mg PO TID PRN PRN Reason: Cough Last Admin: 03/30/22 21:47 Dose: 100 mg Documented By: MINH Comments: barcode ripped Benztropine Mesylate (Benztropine Mesylate 0.5 Mg Tablet) 0.5 mg PO BEDTIME [facility] Last Admin: 04/01/22 20:07 Dose: 0.5 mg Documented By: STEFAN Clopidogrel Bisulfate (Clopidogrel Bisulfate 75 Mg Tablet) 75 mg PO DAILY [facility] Last Admin: 04/02/22 10:33 Dose: 75 mg Documented By: JEFF Escitalopram Oxalate (Escitalopram Oxalate 20 Mg Tablet) 20 mg PO DAILY [facility] Last Admin: 04/02/22 10:33 Dose: 20 mg Documented By: JEFF Furosemide (Furosemide 20 Mg Tablet) 20 mg PO DAILY [facility]; Protocol Last Admin: 04/02/22 10:32 Dose: 20 mg Documented By: JEFF Guaifenesin/Dextromethorphan (Guaifenesin Dm 100/10/5 Ml 5 Ml Syrup) 10 ml PO TID [facility] Last Admin: 04/02/22 10:26 Dose: 10 ml Documented By: JEFF Latanoprost (Latanoprost 0.005 % Ophth Deborah 2.5 Ml Drops) 1 drop EYE-BOTH BEDTIME [facility] Last Admin: 04/01/22 20:08 Dose: 1 drop Documented By: STEFAN Levalbuterol HCl (Levalbuterol Hcl 1.25 Mg/0.5 Ml Vial.Neb) 1.25 mg INHALE RQ4H WHILE AWAKE [facility] Last Admin: 04/02/22 11:24 Dose: 1.25 mg Documented By: KIT Levofloxacin (Levofloxacin 500 Mg Tablet) 500 mg PO Q24H [facility] Last Admin: 04/02/22 13:29 Dose: 500 mg Documented By: JEFF Melatonin (Melatonin 3 Mg Tablet) 3 mg PO BEDTIME PRN PRN Reason: Insomnia Ondansetron HCl (Ondansetron Hcl 4 Mg/2 Ml Vial) 4 mg IVPUSH Q8H PRN PRN Reason: Nausea and Vomiting Last Admin: 03/30/22 09:18 Dose: 4 mg Documented By: RAFAT Pharmacy Consult (Consult Rx Perform Med Rec) 1 each MISCELLANE ONCE PRN PRN Reason: Consult order Prednisone (Prednisone 10 Mg Tablet) 50 mg PO DAILY [facility] Last Admin: 04/02/22 10:31 Dose: 50 mg Documented By: JEFF Sodium Chloride (0.9 % Sodium Chloride Flush 3 Ml Syringe) 3 ml IVFLUSH QSHIFT [facility] Last Admin: 04/02/22 10:33 Dose: 3 ml Documented By: JEFF Spironolactone (Spironolactone 25 Mg Tablet) 50 mg PO DAILY [facility]; Protocol Last Admin: 04/02/22 10:32 Dose: 50 mg Documented By: JEFF Trazodone HCl (Trazodone Hcl 50 Mg Tablet) 50 mg PO BEDTIME PRN PRN Reason: insomnia Last Admin: 04/01/22 20:08 Dose: 50 mg Documented By: STEFAN Verapamil HCl (Verapamil Hcl 40 Mg Tablet) 40 mg PO TID [facility]; Protocol Last Admin: 04/02/22 10:33 Dose: 40 mg Documented By: JEFF Labs CBC & Chem 7: 04/02/22 06:14 04/01/22 06:20 Labs: Laboratory Results - last 24 hr 04/02/22 06:14 MCV 89.6 MCH 30.6 MCHC 34.2 RDW 12.5 Plt Count 265 MPV 10.7 Immature Gran % (Auto) 0.6 H Neut % (Auto) 78.6 H Lymph % (Auto) 12.7 L [place] % (Auto) 7.2 Eos % (Auto) 0.8 Baso % (Auto) 0.1 Lymph # (Auto) 2.6 [place] # (Auto) 1.5 H Eos # (Auto) 0.2 Baso # (Auto) 0.0 Abs Immat Gran (auto) 0.13 H Absolute Neuts (auto) 15.9 H Absolute Nucleated RBC 0.000 Nucleated RBC % (auto) 0.0 Assessment and Plan (1) Acute non-ST elevation myocardial infarction (NSTEMI): Status: Acute (2) Asthma with exacerbation: Status: Acute Plan 71-year-old female patient with past medical history significant for asthma, hypertension, history of bloody diarrhea with aspirin, unknown allergy to Cardizem presented to [facility] [place] with 2-3 days history of dry cough associated with shortness of breath not responding to home inhalers, in the ER patient workup showed a normal chest x-ray, elevated troponin normal BNP, normal electrolyte and CBC, EKG showed no acute ischemia? on examination patient noted to have bilateral expiratory wheeze suggestive of acute asthma exacerbation likely contributing to non ST-elevation [place]. 1.NSTEMI type B -lipitor/Plavix? -echo with hyperdynamic EF; no wall motion abnormality -declines cardiac catheterization; reassess in a.m. 2.Acute asthma exacerbation -prednisone 50 mg daily -q.4 hours open next while awake -titrate O2 3.Hypertension -acceptable control on current therapies -adjust as indicated ? Full code Heparin ?Will require ongoing hospitalization for IV heparin and treatment of asthma exacerbation with IV steroids Quality Stroke Does the patient have a stroke diagnosis?: No VTE Prior VTE?: No VTE Risk Level:: Medical - moderate - high VTE Device Contraindication: Treatment Not Indicated VTE Drug Contraindication: N/A - Med Ordered
[2022-04-02] MEDS: traZODone HCL 50 MG TABLET PO (19:54)
[2022-04-02] MEDS: Benztropine Mesylate 0.5 MG TABLET PO (19:54)
[2022-04-02] MEDS: Acetaminophen 325 MG TABLET 650 MG PO (19:55)
[2022-04-02] MEDS: Latanoprost 0.005 % Ophth Sol 2.5 ML DROPS 1 DROP EYE-BOTH (22:43)
[2022-04-03] VITALS (7 sets, daily range): BP systolic 124–167; BP diastolic 59–82; PULSE 74–99; RESP 16–20; TEMP 36.1–37.2; O2SAT 92–98
[2022-04-03 06:22] LABS: MANUAL DIFF FLAG NO
[2022-04-03 06:26] LABS: Basophils Percent Auto 0.1 % (0-2); Eosinophils Absolute Auto 0.1 X10*3/uL (0.0-0.4); Eosinophils Percent Auto 0.3 % (0-4); Hematocrit 42.8 % (37.0-47.0); Hemoglobin 14.6 g/dl (12.0-16.0); Imm Gran Abs Auto 0.14 X10*3/uL (0.00-0.03); Imm Gran Pct Auto 0.8 % (0.0-0.4); Lymphocytes Absolute Auto 3.3 X10*3/uL (1.2-4.9); Lymphocytes Percent Auto 18.4 % (20-40); Mean Corpuscular HGB Conc 34.1 g/dl (31.0-35.0); Mean Corpuscular Hemoglobin 30.4 pg (27.0-33.0); Mean Platelet Volume 10.3 fL (9.4-12.3); Monocytes Absolute Auto 1.4 X10*3/uL (0.1-1.2); Monocytes Percent Auto 7.8 % (2-11); Neutrophils Absolute Auto 12.9 x10*3/uL (2.0-8.3); Neutrophils Percent Auto 72.6 % (45-73); Platelet Count 302 X10*3/uL (160-400); Red Blood Count 4.81 X10*6/uL (4.20-5.50); Red Cell Distribution Width 12.6 % (11.0-16.0); White Blood Count 17.8 X10*3/uL (4.8-10.8)
[2022-04-03] MEDS: predniSONE 10 MG TABLET 50 MG PO (08:45)
[2022-04-03] MEDS: guaiFENesin DM 100/10/5 ML 5 ML SYRUP 10 ML PO ×3 (08:45→20:14)
[2022-04-03] MEDS: ARIPiprazole 15 MG TABLET PO (08:46)
[2022-04-03] MEDS: Clopidogrel Bisulfate 75 MG TABLET PO (08:46)
[2022-04-03] MEDS: Furosemide 20 MG TABLET PO (08:46)
[2022-04-03] MEDS: Atorvastatin Calcium 80 MG TABLET PO (08:46)
[2022-04-03] MEDS: Escitalopram Oxalate 20 MG TABLET PO (08:46)
[2022-04-03] MEDS: 0.9 % Sodium Chloride Flush 3 ML SYRINGE IVFLUSH ×3 (08:46→23:22)
[2022-04-03] MEDS: Spironolactone 25 MG TABLET 50 MG PO (08:46)
[2022-04-03] MEDS: VerapamiL HCL 40 MG TABLET PO ×3 (08:46→20:14)
--- NOTE | 2022-04-03 10:55 | P.PNIM_ITS ---
Subjective Subjective Date of Service: 04/03/22 Interval History: Breathing improved; no longer with oxygen requirement. Extremely unsteady Review of Systems Admits shortness of breath at rest Denies chest pain Denies nausea vomiting diarrhea Denies fever chills Physical Exam Vital Signs: Vital Signs: Last Vital Signs Temp 98.5 F 04/03/22 08:00 Pulse 92 04/03/22 08:00 Resp 18 04/03/22 08:00 BP 166/78 H 04/03/22 08:00 Pulse Ox 93 04/03/22 08:00 O2 Del Method 04/03/22 08:00 O2 Flow Rate 1 04/02/22 12:00 BMI result Body Mass Index 36.8 Const: Other: Awake alert oriented x3 able speak in full sentences Resp: Other: Improved aeration to bases; scattered expiratory wheezes with coarse rhonchi that clear with cough Cardio: Other: No S4; positive S1-S2; no S3 murmurs rubs or gallops GI: Other: Soft nontender nondistended normoactive bowel sounds Extrem: Other: No edema bilaterally Objective Data Active Medications Acetaminophen (Acetaminophen 325 Mg Tablet) 650 mg PO Q6H PRN PRN Reason: Pain, Mild (Pain Scale 1-3) Last Admin: 04/02/22 19:55 Dose: 650 mg Documented By: DILCIA Albuterol Sulfate (Albuterol Sulfate 90 Mcg 8 Gm Inhaler) 2 puff INHALE Q4H PRN PRN Reason: wheezing Albuterol/Ipratropium (Albuterol/Iprat 2.5/0.5mg 3 Ml Ampul.Neb) 3 ml INHALE RQ4H PRN PRN Reason: Shortness of Breath/Wheezing Aripiprazole (Aripiprazole 15 Mg Tablet) 15 mg PO DAILY [facility] Last Admin: 04/03/22 08:46 Dose: 15 mg Documented By: CHRISTINE Atorvastatin Calcium (Atorvastatin Calcium 80 Mg Tablet) 80 mg PO DAILY [facility] Last Admin: 04/03/22 08:46 Dose: 80 mg Documented By: CHRISTINE Benzonatate (Benzonatate 100 Mg Capsule) 100 mg PO TID PRN PRN Reason: Cough Last Admin: 03/30/22 21:47 Dose: 100 mg Documented By: MINH Comments: barcode ripped Benztropine Mesylate (Benztropine Mesylate 0.5 Mg Tablet) 0.5 mg PO BEDTIME [facility] Last Admin: 04/02/22 19:54 Dose: 0.5 mg Documented By: DILCIA Clopidogrel Bisulfate (Clopidogrel Bisulfate 75 Mg Tablet) 75 mg PO DAILY [facility] Last Admin: 04/03/22 08:46 Dose: 75 mg Documented By: CHRISTINE Escitalopram Oxalate (Escitalopram Oxalate 20 Mg Tablet) 20 mg PO DAILY [facility] Last Admin: 04/03/22 08:46 Dose: 20 mg Documented By: CHRISTINE Furosemide (Furosemide 20 Mg Tablet) 20 mg PO DAILY [facility]; Protocol Last Admin: 04/03/22 08:46 Dose: 20 mg Documented By: CHRISTINE Guaifenesin/Dextromethorphan (Guaifenesin Dm 100/10/5 Ml 5 Ml Syrup) 10 ml PO TID [facility] Last Admin: 04/03/22 08:45 Dose: 10 ml Documented By: CHRISTINE Latanoprost (Latanoprost 0.005 % Ophth Deborah 2.5 Ml Drops) 1 drop EYE-BOTH BEDTIME [facility] Last Admin: 04/02/22 22:43 Dose: 1 drop Documented By: DILCIA Levofloxacin (Levofloxacin 500 Mg Tablet) 500 mg PO Q24H [facility] Last Admin: 04/02/22 13:29 Dose: 500 mg Documented By: JEFF Melatonin (Melatonin 3 Mg Tablet) 3 mg PO BEDTIME PRN PRN Reason: Insomnia Ondansetron HCl (Ondansetron Hcl 4 Mg/2 Ml Vial) 4 mg IVPUSH Q8H PRN PRN Reason: Nausea and Vomiting Last Admin: 03/30/22 09:18 Dose: 4 mg Documented By: COTMOUNIKA Pharmacy Consult (Consult Rx Perform Med Rec) 1 each MISCELLANE ONCE PRN PRN Reason: Consult order Prednisone (Prednisone 10 Mg Tablet) 50 mg PO DAILY [facility] Last Admin: 04/03/22 08:45 Dose: 50 mg Documented By: CHRISTINE Sodium Chloride (0.9 % Sodium Chloride Flush 3 Ml Syringe) 3 ml IVFLUSH QSHIFT [facility] Last Admin: 04/03/22 08:46 Dose: 3 ml Documented By: CHRISTINE Spironolactone (Spironolactone 25 Mg Tablet) 50 mg PO DAILY [facility]; Protocol Last Admin: 04/03/22 08:46 Dose: 50 mg Documented By: CHRISTINE Trazodone HCl (Trazodone Hcl 50 Mg Tablet) 50 mg PO BEDTIME PRN PRN Reason: insomnia Last Admin: 04/02/22 19:54 Dose: 50 mg Documented By: DILCIA Verapamil HCl (Verapamil Hcl 40 Mg Tablet) 40 mg PO TID [facility]; Protocol Last Admin: 04/03/22 08:46 Dose: 40 mg Documented By: CHRISTINE Labs CBC & Chem 7: 04/03/22 05:55 04/01/22 06:20 Labs: Laboratory Results - last 24 hr 04/03/22 05:55 MCV 89.0 MCH 30.4 MCHC 34.1 RDW 12.6 Plt Count 302 MPV 10.3 Immature Gran % (Auto) 0.8 H Neut % (Auto) 72.6 Lymph % (Auto) 18.4 L [place] % (Auto) 7.8 Eos % (Auto) 0.3 Baso % (Auto) 0.1 Lymph # (Auto) 3.3 [place] # (Auto) 1.4 H Eos # (Auto) 0.1 Baso # (Auto) 0.0 Abs Immat Gran (auto) 0.14 H Absolute Neuts (auto) 12.9 H Absolute Nucleated RBC 0.000 Nucleated RBC % (auto) 0.0 Assessment and Plan (1) Acute non-ST elevation myocardial infarction (NSTEMI): Status: Acute (2) Asthma with exacerbation: Status: Acute (3) Hypertension: Status: Acute Plan 71-year-old female patient with past medical history significant for asthma, hypertension, history of bloody diarrhea with aspirin, unknown allergy to Cardizem presented to [facility] with 2-3 days history of dry cough associated with shortness of breath not responding to home inhalers, in the ER patient workup showed a normal chest x-ray, elevated troponin normal BNP, normal electrolyte and CBC, EKG showed no acute ischemia? on examination patient noted to have bilateral expiratory wheeze suggestive of acute asthma exacerbation likely contributing to non ST-elevation [place]. 1.NSTEMI type B -lipitor/Plavix? -echo with hyperdynamic EF; no wall motion abnormality -declines cardiac catheterization; explained again in great detail necessity for catheterization. Patient verbalizes understanding however still declines to go forward of catheterization. -continue conservative therapies 2.Acute asthma exacerbation -prednisone 50 mg daily -q.4 hours open next while awake -no longer has an O2 requirement; is willing to go to short-term rehab as patient has been minimally ambulatory during hospitalization -PT consult 3.Hypertension -acceptable control on current therapies -adjust as indicated ? Full code Heparin ?Will require ongoing hospitalization for IV heparin and treatment of asthma exacerbation with IV steroids Quality Stroke Does the patient have a stroke diagnosis?: No VTE Prior VTE?: No VTE Risk Level:: Medical - moderate - high VTE Device Contraindication: Treatment Not Indicated VTE Drug Contraindication: N/A - Med Ordered
[2022-04-03] MEDS: levoFLOXacin 500 MG TABLET PO (13:14)
--- NOTE | 2022-04-03 13:42 | MHC.CM.PN ---
PT is recommending STR; referrals have been made and CM will follow.
[2022-04-03 17:32] LABS: IgA 308 mg/dL (70-320); IgG 807 mg/dL (600-1540); IgM 76 mg/dL (50-300)
[2022-04-03 18:07] LABS: Immunoglobulin E 722 kU/L (<OR=114)
[2022-04-03] MEDS: traZODone HCL 50 MG TABLET PO (20:14)
[2022-04-03] MEDS: Benztropine Mesylate 0.5 MG TABLET PO (20:14)
[2022-04-03] MEDS: Latanoprost 0.005 % Ophth Sol 2.5 ML DROPS 1 DROP EYE-BOTH (20:20)
[2022-04-03 23:07] LABS: Strep Pneumo Ag urine Not Detected (Not Detected)
[2022-04-03] MEDS: Benzonatate 100 MG CAPSULE PO (23:33)
[2022-04-04] VITALS: BP 166/76; PULSE 84; RESP 16; TEMP 36.1; O2SAT 98
[2022-04-04 01:00] VITALS: BP 138/75; PULSE 82
[2022-04-04 04:00] VITALS: BP 127/78; PULSE 87; RESP 18; TEMP 36.1; O2SAT 94
[2022-04-04 07:56] VITALS: BP 187/80; PULSE 93; RESP 12; TEMP 35.9; O2SAT 96
[2022-04-04] MEDS: predniSONE 10 MG TABLET 50 MG PO (08:02)
[2022-04-04] MEDS: 0.9 % Sodium Chloride Flush 3 ML SYRINGE IVFLUSH (08:02)
[2022-04-04] MEDS: Clopidogrel Bisulfate 75 MG TABLET PO (08:03)
[2022-04-04] MEDS: Atorvastatin Calcium 80 MG TABLET PO (08:03)
[2022-04-04] MEDS: VerapamiL HCL 40 MG TABLET PO (08:03)
[2022-04-04] MEDS: Furosemide 20 MG TABLET PO (08:03)
[2022-04-04] MEDS: ARIPiprazole 15 MG TABLET PO (08:03)
[2022-04-04] MEDS: guaiFENesin DM 100/10/5 ML 5 ML SYRUP 10 ML PO (08:03)
[2022-04-04] MEDS: Escitalopram Oxalate 20 MG TABLET PO (08:03)
[2022-04-04] MEDS: Spironolactone 25 MG TABLET 50 MG PO (08:03)
[2022-04-04 10:38] VITALS: BP 152/72; PULSE 100; RESP 19; TEMP 36.4; O2SAT 94
[2022-04-04] MEDS: Metoprolol Tartrate 25 MG TABLET PO (10:39)
--- NOTE | 2022-04-04 12:03 | MHC.CM.PN ---
pt to [facility] today at 2;30 to gabi santos
--- NOTE | 2022-04-04 12:16 | MHC.CM.PN ---
pt dcd today to gabi santos at [address] and pt aware
[2022-04-04 12:43] LABS: COVID-19 Test Negative (Negative); IDNOW Serial# 16C4AD1C
--- NOTE | 2022-04-04 15:17 | PM.DS ---
DS: Providers Provider Date of Service: 04/04/22 Date of admission: 03/26/22 14:32 Primary care physician: Rob Young MD Consults: 03/26/22 12:28 Consult to Cardiology Stat Consulting Provider: Munir Abraham Reason for consultation: Shortness of breath, elevated troponin, evaluate for NSTEMI 03/26/22 14:50 Consult to Cardiology Routine Consulting Provider: Munir Abraham Reason for consultation: nstemi Has provider been notified: No 03/31/22 12:25 Consult to Pulmonology Stat Consulting Provider: Emory Ladd Reason for consultation: Asthma eacerbation Has provider been notified: Yes DS: Diagnosis Discharge Diagnosis (1) Acute non-ST elevation myocardial infarction (NSTEMI): Status: Acute (2) Asthma with exacerbation: Status: Acute (3) Hypertension: Status: Acute (4) Tracheobronchitis: Status: Acute (5) Chronic cough: Status: Acute DS: Summary Hospital Course Hospital Course: 71-year-old female patient with past medical history significant for hypertension, asthma, TIA in 2019 presented to [facility] due to shortness of breath of 2 days duration associated with dry cough for few days duration patient took her home inhalers with no significant improvement last night patient woke up with? worsening shortness of breath therefore called ambulance, paramedics noted bilateral wheeze she required treatment with DuoNeb nebulizer EN route in the ED patient was noted to be tachypneic tachycardic lung exam revealed diffuse wheezing and rhonchi patient treated with albuterol nebulizer, IV steroids , influenza and COVID test was negative chest x-ray showed no acute infiltrate, BNP was 31, initial troponin was 25 that jump to 240, EKG showed no acute ischemic changes patient denies chest pain, no palpitation patient denies associated nausea vomiting abdominal pain no diaphoresis, no lightheadedness, no dizziness, denies fever chills patient is now being admitted to [facility] with asthma exacerbation likely causing ? secondary MN on arrival patient oxygenation was 89% on room air. hospital course: patient was admitted because of asthma exacerbation,, acute tracheobronchitis( mild intermittent asthma exacerbation)- for which patient was treated with steroids and antibiotics, switched to p.o. steroids taper and antibiotic upon discharge. NSTEMI: Treated with Plavix, statin,Echocardiogram with hyperdynamic LVEF.? patient was offered for cardiac catheterization for further management and patient declined- cardio recommended to continue above management. In addition verapamil was added due to tachycardia and hypertension. further management out patiently, consider outpatient follow-up with Cardiology for further management. Above management discuss with the patient in detail length she understand and in agreement with the above plan, time spent 50 minute. Time Spent with Patient Time attestation: Total time spent providing and/or coordinating discharge services: Discharge coordination time: Greater than 30 minutes Quality: Safe Use of Opioids Does Pt have an Active Cancer Diagnosis on the Problem List?: No Quality: Stroke Does the patient have a stroke diagnosis?: No Physical Exam Vital Signs: Vital Signs: Last Vital Signs Temp 97.6 F 04/04/22 10:38 Pulse 100 04/04/22 10:38 Resp 19 04/04/22 10:38 BP 152/72 H 04/04/22 10:38 Pulse Ox 94 04/04/22 10:38 O2 Del Method 04/04/22 10:38 O2 Flow Rate 1 04/04/22 10:38 BMI result Body Mass Index 36.8 Appearance: Alert.? Oriented X3.? not in distress.? cvs: rrr, [id number] . res: clear to auscultation ,no rhonchii or wheezing abd: no rebound or guarding ,nt, bs present. ext pulses present , no cyanosis . neuro: axo3 , nonfocal. DS: Data Data Completed and Pending Labs on day of discharge: Laboratory Results - last 24 hr 03/31/22 03/31/22 03/31/22 14:31 14:31 16:27 IgG Total 807 IgA Total 308 IgM 76 IgE 722 H COVID-19 (LINDA) COVID-19 Clin Com Ur Strep pneumoniae Ag Not Detected 04/04/22 12:06 IgG Total IgA Total IgM IgE COVID-19 (LINDA) Negative COVID-19 Clin Com See Note Ur Strep pneumoniae Ag Imaging Chest x-ray: Radiologist's impression: ITS Impressions Chest X-Ray 03/26/22 07:27 IMPRESSION: No acute cardiopulmonary process. Chest X-Ray 03/31/22 14:49 IMPRESSION: Question lower lobe atelectasis. No evidence of pneumonia. Air-filled slightly distended loops of bowel. Discharge Plan Discharge Anticipated Discharge Date/Time: 04/04/22 14:46 Patient Disposition: [facility] Discharge Diagnosis: Acute asthma exacerbation, NSTEMI Referrals: gabi santos [Other] - 1 Week Rob Young MD [Primary Care Provider] - 1 Week Discharge Medications: New atorvastatin 80 mg Tablet 80 mg PO DAILY Qty: 30 0RF dextromethorphan-guaifenesin 10-100 mg/5 mL Syrup 10 ml PO TID Qty: 100 0RF benzonatate 100 mg Capsule 100 mg PO TID PRN (Reason: Cough) Qty: 10 0RF fluticasone furoate-vilanterol [Breo Ellipta] 100-25 mcg/dose Blister With Device 1 inh inhalation RDAILY Qty: 1 0RF verapamil 180 mg capsule,ext rel. pellets 24 hr 180 mg PO DAILY Qty: 30 0RF levofloxacin 500 mg Tablet 500 mg PO Q24H Qty: 2 0RF prednisone 10 mg tablet See Taper PO DAILY Qty: 30 0RF Taper: Prednisone 40 mg daily for 3 Days and 0 Hour 30 mg daily for 3 Days and 0 Hour 20 mg daily for 3 Days and 0 Hour 10 mg daily for 3 Days and 0 Hour Continued latanoprost 0.005 % drops 1 drp ophthalmic (eye) BEDTIME trazodone 50 mg tablet 1 tab PO BEDTIME PRN (Reason: insomnia) alendronate 70 mg tablet 1 tab PO LOPEZ@0900 Rx Instructions: with 6 to 8 ounces of plain water; at least 30 minutes before first meal clopidogrel 75 mg tablet 1 tab PO DAILY benztropine 1 mg tablet 0.5 tab PO BEDTIME furosemide 20 mg tablet 1 tab PO DAILY albuterol sulfate 90 mcg/actuation HFA aerosol inhaler 2 puff INHALATION Q4H PRN (Reason: wheezing) spironolactone 50 mg tablet 1 tab PO DAILY cholecalciferol (vitamin D3) [Vitamin D3] 25 mcg (1,000 unit) capsule 1 cap PO DAILY escitalopram oxalate 20 mg tablet 1 tab PO DAILY aripiprazole 15 mg tablet 1 tab PO DAILY rosuvastatin 5 mg tablet 1 tab PO DAILY Saccharomyces boulardii [Probiotic (S.boulardii)] 250 mg capsule 1 cap PO BID Advil Dual Action 125-250 mg Tablet 2 tab PO BID Discharge Orders: Discharge Order (Routine); Ordered 04/04/22 Ordered By: Yeyo Small Diet: Advance to usual diet Activity on Discharge: As tolerated Stand Alone Forms: Patient Portal Discharge page Care Plan Goals: patient was admitted because of asthma exacerbation,, acute tracheobronchitis( mild intermittent asthma exacerbation)- for which patient was treated with steroids and antibiotics, switched to p.o. steroids taper and antibiotic upon discharge. NSTEMI: Treated with Plavix, statin,Echocardiogram with hyperdynamic LVEF.? patient was offered for cardiac catheterization for further management and patient declined- cardio recommended to continue above management. In addition verapamil was added due to tachycardia and hypertension. further management out patiently, consider outpatient follow-up with Cardiology for further management. Health Concerns: As above. Plan of Treatment: As above. Assessment: As above.
== END 2022-04-04 15:28 | disposition skilled nursing facility (03) | DRG 202 ==
LOC: HO.ED 12:26 → HO.EDOVER 14:37 → HO.IMC 17:58
PROVIDERS: Hospitalist; Internal Medicine; Admitting Provider Hospitalist; Emergency Provider Emergency Medicine Emergency Medical Services; PCP Internal Medicine; Visit Provider Internal Medicine
DX: J45.21 Mild intermittent asthma with (acute) exacerbation (principal); I21.A1 Myocardial infarction type 2; F39 Unspecified mood [affective] disorder; I10 Essential (primary) hypertension; J40 Bronchitis, not specified as acute or chronic; Z20.822 Contact with and (suspected) exposure to COVID-19; Z88.5 Allergy status to narcotic agent; Z88.6 Allergy status to analgesic agent; Z88.8 Allergy status to other drugs, medicaments and biological substances; Z79.51 Long term (current) use of inhaled steroids; Z79.02 Long term (current) use of antithrombotics/antiplatelets; Z79.899 Other long term (current) drug therapy
CPT/HCPCS: 36415; 71045; 71046; 80053; 80061; 82784; 82785; 83036; 83690; 83880; 84484; 85025; 85027; 85610; 85730; 87502; 87635; 87899; 93005; 93306; 94640; 96365; 96375; 97162; 99285; J0456; J2405; J2930; Q9957

== ENCOUNTER → 2022-05-22 12:21 | Outpatient (BNVA) | payer MEDICARE, SELFPAY | PROVIDERS: PCP Internal Medicine; Referring Provider Internal Medicine; Visit Provider Internal Medicine | DX: I21.4 Non-ST elevation (NSTEMI) myocardial infarction (principal) | CPT/HCPCS: 99212 ==

== ENCOUNTER → 2022-06-02 09:46 | Outpatient (REF) | payer MEDICARE, SELFPAY ==
--- NOTE | ~2022-06-02 | NM_ITS ---
Lexiscan Myocardial perfusion study Indication: NSTEMI Technique: The patient was brought in for a Lexiscan perfusion study on 06/02/2022 and was injected 0.4 mg of Lexiscan intravenously. Within a minute of this injection 30 mCi of sestamibi was given intravenously. Images were obtained using the SPECT gamma camera interlaced with the gating device. Images were obtained in supine position. Resting perfusion study was performed on 06/05/2022. Patient was administered 30 mCi of sestamibi intravenously at rest. Images were then obtained in supine position. Total DLP 175mGy-cm. Images were processed with the software and compared side to side in short axis, horizontal long axis and vertical long axis views. Findings: Raw acquisition reviewed. Arms by the patient's side. The stress perfusion study showed no significant perfusion abnormality. Both uncorrected as well as CT attenuation corrected images were reviewed. The gated study shows normal LV systolic function with calculated LVEF of >70%. LV cavity is normal in size. The gated study shows normal wall thickening and contraction of segments. Resting study shows no significant perfusion abnormality. Gating at rest reveals normal wall motion with ejection fraction at >70%. The findings are consistent with no clear evidence of reversible or fixed perfusion defects. NM/NM cardiolite stress test Impression: 1. Myocardial perfusion imaging study shows normal myocardial perfusion. 2. Gated LVEF is >70% during stress and rest. 3. Transient ischemic dilatation not present. EKG component of the test reported separately.
--- NOTE | 2022-06-02 09:49 | CA_ITS ---
Acquisition Time: 2022-06-02 10:31:04 Total Exercise Time: 00:02:00 Test Indications: I21.4 - Non-ST elevation (NSTEM Medications: Protocol: LEXISCAN Max HR: 106 BPM 70% of Pred: 150 BPM Max BP: 128/062 mmHG Max Work Load: 1.0 METS Pharmacological stress test with Lexiscan injection, while sitting and kicking her legs, without anginal symptoms, with isolated PVC, with normotensive response to injection, with nondiagnostic EKG for ischemia. In recovery she Aminophylline 75mg IVP to reverse Lexiscan. Nuclear images pending. Test reviewed with Dr Brar Referred By: Justino Brar Overread By: GAEL SHAHID
== END ==
LOC: HO.CARD 09:46
PROVIDERS: PCP Internal Medicine; Visit Provider Internal Medicine
DX: R07.2 Precordial pain (principal); I21.4 Non-ST elevation (NSTEMI) myocardial infarction
CPT/HCPCS: 78452; 93017; A9500; J0280; J2785